=== PATIENT | female | born 1955 | race Caucasian/White ===

== ENCOUNTER 2022-09-21 01:12 | Day surgery (SDC) | payer MEDICARE, BC, SELFPAY ==
[2022-09-05 14:11] VITALS: BMI 35.5
--- NOTE | 2022-09-20 13:24 | PM.HPGS ---
History of Present Illness History of Present Illness Consent: Risks, benefits, and alternatives have been discussed and questions answered. Patient agrees to proceed with procedure. Chief complaint: neoplasm screening Narrative: Anat Rai is a 67 year old female Referred for colon cancer screening. she has a history of having had polyps removed in the past. Review of Systems Review of Systems: All systems reviewed & are unremarkable except as noted in HPI and below [facility] Social History Social History Smoking status: Never smoker Alcohol intake: current Alcohol use details: socially Substance use: never Substance use type: does not use Living arrangements: with family Spiritual care concerns: No Meds Home Medications and Allergies Home Medications Medication Instructions Recorded Confirmed Type aspirin 81 mg capsule 81 mg PO DAILY 09/15/21 09/05/22 History calcium carbonate 600 mg calcium 600 mg PO DAILY 09/15/21 09/05/22 History (1,500 mg) tablet (Calcium) empagliflozin 25 mg tablet 25 mg PO QAM 09/15/21 09/05/22 History (Jardiance) felodipine 5 mg tablet,extended 5 mg PO DAILY 09/15/21 09/05/22 History release 24 hr lisinopril 20 mg tablet 20 mg PO DAILY 09/15/21 09/05/22 History metformin 500 mg tablet,extended 500 mg PO BID 09/15/21 09/05/22 History release 24 hr pantoprazole 20 mg tablet,delayed 20 mg PO QAM 09/15/21 09/05/22 History release semaglutide 1 mg/dose (2 mg/1.5 1 mg subcut WEEKLY 09/15/21 09/05/22 History mL) subcutaneous pen injector (Ozempic) Vascepa 1 mg PO BID 09/05/22 09/05/22 History Allergies Allergy/AdvReac Type Severity Reaction Status Date / Time No Known Allergies Allergy Verified 09/05/22 14:08 Exam Const: General: alert Orientation/consciousness: patient oriented x3 Resp: Auscultation: clear to auscultation bilaterally Cardio: Rhythm: regular rhythm GI: GI Palp: Yes Soft to palpation and No Tenderness to palpation present (GI) Neuro: General: patient oriented x3 Assessment and Plan Assessment and plan (1) Colon cancer screening: Code(s): Z12.11 - Encounter for screening for malignant neoplasm of colon Status: Acute Assessment and Plan: Colonoscopy with possible biopsy or polypectomy or cautery or injection of substances.
[2022-09-21 09:53] VITALS: BP 110/80; PULSE 60; RESP 18; TEMP 36.3; O2SAT 100; BMI 35.6
--- NOTE | 2022-09-21 10:09 | P.PNAN_ITS ---
Anes - Initial Pre Proc Eval Procedure: Operation Date: 09/21/22 11:30 Proposed Procedures p Screening Colonoscopy - Issac Chowdhury MD Date/Time: 09/21/22 10:09 Surgeon: Issac Chowdhury MD Pre Op Diagnosis: neoplasm screening Patient Data Age: 67 Gender: F Height: 1.6 m Weight: 91.4 kg Last Vital Signs Temp 97.3 F L 09/21/22 09:53 Pulse 60 09/21/22 09:53 Resp 18 09/21/22 09:53 BP 110/80 09/21/22 09:53 Pulse Ox 100 09/21/22 09:53 O2 Del Method Room Air 09/21/22 09:53 Allergies Allergy/AdvReac Type Severity Reaction Status Date / Time No Known Allergies Allergy Verified 09/05/22 14:08 Home Medications Medication Instructions Recorded Confirmed Type aspirin 81 mg capsule 81 mg PO DAILY 09/15/21 09/05/22 History calcium carbonate 600 mg calcium 600 mg PO DAILY 09/15/21 09/05/22 History (1,500 mg) tablet (Calcium) empagliflozin 25 mg tablet 25 mg PO QAM 09/15/21 09/05/22 History (Jardiance) felodipine 5 mg tablet,extended 5 mg PO DAILY 09/15/21 09/05/22 History release 24 hr lisinopril 20 mg tablet 20 mg PO DAILY 09/15/21 09/05/22 History metformin 500 mg tablet,extended 500 mg PO BID 09/15/21 09/05/22 History release 24 hr pantoprazole 20 mg tablet,delayed 20 mg PO QAM 09/15/21 09/05/22 History release semaglutide 1 mg/dose (2 mg/1.5 1 mg subcut WEEKLY 09/15/21 09/05/22 History mL) subcutaneous pen injector (Ozempic) Vascepa 1 mg PO BID 09/05/22 09/05/22 History Patient hx anesthesia problems: none Family hx anesthesia problems: none Results Review: All pre-operative results and documents have been reviewed as part of the pre- operative evaluation. [facility] Social History Social History Smoking status: Never smoker Alcohol intake: current Alcohol use details: socially Substance use: never Substance use type: does not use Living arrangements: with family Spiritual care concerns: No Anes - Eval Final PreProcedure Day of Procedure 09/21/22 10:09 Patient weight: obese Heart: regular rate and rhythm Lungs: clear to auscultation Airway: Mallampati scale class III Neurological: alert and oriented Last oral intake: >/= 8 hours ASA classification: III Emergent: no Anesthetic plan: proceed Anesthesia type and monitoring: general GIVS and standard monitoring Results Review: All pre-operative results and documents have been reviewed as part of the pre- operative evaluation. Informed Consent: The patient's anesthetic plan and its attendant risks and benefits were discussed with the patient/family/POA. Questions were solicited and answers provided to the satisfaction of the patient/family/POA.
[2022-09-21 10:12] LABS: Glucose Point of Care 99 mg/dl (65-105)
[2022-09-21] MEDS: LACTATED RINGERS 1,000 ML 150 ML IV CONT (10:23)
[2022-09-21 11:41] VITALS: BP 102/62; PULSE 91; RESP 21; O2SAT 99
[2022-09-21 11:51] VITALS: BP 110/74; PULSE 83; RESP 22; O2SAT 98
[2022-09-21 12:01] VITALS: BP 113/75; PULSE 79; RESP 26; O2SAT 97
== END 2022-09-21 12:04 | disposition home or self-care (01) ==
PROVIDERS: PCP Internal Medicine; Visit Provider Internal Medicine Gastroenterology
PROC: 0DJD8ZZ Inspection of Lower Intestinal Tract, Via Natural or Artificial Opening Endoscopic (ICD-10-PCS; CPT 45378; principal; 2022-09-21 11:30)
DX: Z12.11 Encounter for screening for malignant neoplasm of colon (principal); D12.8 Benign neoplasm of rectum; K57.30 Diverticulosis of large intestine without perforation or abscess without bleeding; Z79.84 Long term (current) use of oral hypoglycemic drugs; Z79.899 Other long term (current) drug therapy; E66.9 Obesity, unspecified; Z68.35 Body mass index [BMI] 35.0-35.9, adult
CPT/HCPCS: 45385; 45380; 82948; 88305; J2704; J7120

== ENCOUNTER 2023-10-23 13:41 | Outpatient (CLI) | payer MEDICARE, BC, SELFPAY ==
[2023-10-23 13:55] LABS: Basophils Absolute Auto 0.1 K/mm3 (0.0-0.1); Basophils Percent Auto 0.7 % (0.2-1.2); Eosinophils Absolute Auto 0.2 K/mm3 (0-0.3); Eosinophils Percent Auto 1.9 % (0-4.4); Hematocrit 45.3 % (37.0-47.0); Immature Granulocyte Absolute 0.04 K/mm3 (0.00-0.031); Immature Granulocyte Percent A 0.4 % (0-0.5); Lymphocytes Absolute Auto 2.34 K/mm3 (0.9-3.2); Lymphocytes Percent Auto 25.7 % (18.3-44.2); Mean Corpuscular HGB Conc 33.1 g/dl (32-36); Mean Corpuscular Hemoglobin 30.5 pg (26-34); Mean Corpuscular Volume 92.1 fl (80-100); Mean Platelet Volume 10.6 fl (7.4-10.4); Monocytes Absolute Auto 0.5 K/mm3 (0.1-0.6); Monocytes Percent Auto 5.6 % (2.6-8.5); Neutrophils Percent Auto 65.7 % (45.5-73.1); Platelet Count Result 255 k/mm3 (150-375); Red Blood Count 4.92 M/mm3 (4.2-5.4); Red Cell Distribution Width 13.1 % (11.5-14.5); White Blood Count 9.1 K/mm3 (4.5-10.0)
== END 2023-10-23 13:42 | disposition home or self-care (01) ==
LOC: ANHLAB 13:44
PROVIDERS: PCP Internal Medicine; Visit Provider Internal Medicine Hematology & Oncology
DX: D75.1 Secondary polycythemia (principal)
CPT/HCPCS: 36415; 85025

== ENCOUNTER 2024-10-07 13:16 | Outpatient (CLI) | payer MEDICARE, BC, SELFPAY ==
[2024-10-07 13:27] LABS: Basophils Absolute Auto 0.1 K/mm3 (0.0-0.1); Basophils Percent Auto 0.9 % (0.2-1.2); Eosinophils Absolute Auto 0.3 K/mm3 (0-0.3); Eosinophils Percent Auto 3.8 % (0-4.4); Immature Granulocyte Absolute 0.03 K/mm3 (0.00-0.031); Immature Granulocyte Percent A 0.4 % (0-0.5); Lymphocytes Absolute Auto 2.39 K/mm3 (0.9-3.2); Lymphocytes Percent Auto 30.5 % (18.3-44.2); Mean Corpuscular HGB Conc 32.6 g/dl (32-36); Mean Corpuscular Hemoglobin 30.5 pg (26-34); Mean Corpuscular Volume 93.5 fl (80-100); Mean Platelet Volume 10.1 fl (7.4-10.4); Monocytes Absolute Auto 0.6 K/mm3 (0.1-0.6); Neutrophils Absolute Auto 4.4 K/mm3 (1.3-6.7); Neutrophils Percent Auto 56.4 % (45.5-73.1); Platelet Count Result 261 k/mm3 (150-375); Red Blood Count 4.92 M/mm3 (4.2-5.4); White Blood Count 7.8 K/mm3 (4.5-10.0)
== END 2024-10-07 13:17 | disposition home or self-care (01) ==
LOC: ANHLAB 13:17
PROVIDERS: PCP Internal Medicine; Visit Provider Internal Medicine Hematology & Oncology
DX: D75.1 Secondary polycythemia (principal)
CPT/HCPCS: 36415; 85025

== ENCOUNTER 2025-07-09 11:55 | Outpatient (CLI) | payer MEDICARE, BC, SELFPAY ==
[2025-07-09 13:13] LABS: Hematocrit 47.4 % (37.0-47.0); Hemoglobin 15.5 g/dL (12.0-15.0); Immature Granulocyte Percent A 0.4 % (0-0.5); Lymphocytes Absolute Auto 2.26 K/mm3 (0.9-3.2); Mean Corpuscular HGB Conc 32.7 g/dl (32-36); Mean Corpuscular Hemoglobin 30.0 pg (26-34); Mean Corpuscular Volume 91.7 fl (80-100); Nucleated Red Blood Cells Absolute Auto 0.000 K/mm3 (0.0-0.012); Nucleated Red Blood Cells Perc 0.0 % (0.0-0.2); Platelet Count Result 254 k/mm3 (150-375); Red Blood Count 5.17 M/mm3 (4.2-5.4); White Blood Count 8.1 K/mm3 (4.5-10.0)
[2025-07-09 13:25] LABS: INR 0.9; Prothrombin Time 12.2 Seconds (11.1-14.7)
[2025-07-09 13:26] LABS: Partial Thromboplastin Time 25.4 Seconds (22.3-36.8)
[2025-07-09 13:34] LABS: Albumin Level 4.4 g/dL (3.5-5.1); Anion Gap 9 mmol/L (4-12); Blood Urea Nitrogen 15 mg/dL (7-17); Calcium 9.4 mg/dL (8.4-10.2); Carbon Dioxide 28 mmol/L (22-30); Chloride 103 mmol/L (98-107); Estimated Glomerular Filt Rate 51; Glucose 106 mg/dL (65-110); Potassium 3.8 mmol/L (3.4-5.0); Sodium 140 mmol/L (137-145)
[2025-07-09 14:01] LABS: Hemoglobin A1C 6.1 % (<5.7)
--- OUTSIDE RECORDS SUMMARY | 2025-07-09 15:12 | XMS_ITS | Clinical Summary ---
Author Organization [facility] Address [address] [place] [address] Care Team Providers Care Pantograph Watcher Name Role Phone Win Garcia MD Primary Care Provider Source Comments [facility],non-owned Affiliates and Associated Physician Practices is amultiple site organization consisting of ambulatory clinics and hospital sitesin [place], [place], [place] and [place]. This disclosure is being madepursuant to the Care Everywhere program and may not contain all information available regarding this patient. Last updated 18.[facility] Allergies No known active allergies Medications * Be aware that medications may not be up to date on this document. Alwaysverify current medications with the patient. felodipine CR 24hr (PLENDIL) 10 MG tablet 5 mg once daily 9 Active atorvastatin (LIPITOR) 20 MG tablet Take 2 (two) tablets by mouth at bedtime 9 Active lisinopril (PRINIVIL; ZESTRIL) 10 MG tablet 2 (two) tablets at bedtime 9 Active pantoprazole EC (PROTONIX) 40 MG tablet Take 20 mg by mouth as needed Active Semaglutide (OZEMPIC, 0.25 OR 0.5 MG/DOSE, SC) Inject 2 mg subcutaneously every 7 days Take 0.25 mg for 4 weeks then 0.50 mg Active empagliflozin (Jardiance) 25 MG tablet Take 1 (one) tablet by mouth once daily Active Calcium Carb-Cholecalc iferol (CALCIUM/VITAM IN D PO) Take 600 mg by mouth once daily Active metFORMIN (GLUCOPHAGE) 500 MG tablet Take 1 (one) tablet by mouth 2 times daily with morning and evening meal Active aspirin EC (Ecotrin) 81 MG tablet Take 1 (one) tablet by mouth once daily Active icosapent ethyl (Vascepa) 1 g capsule Take 2 (two) capsules by mouth 2 times daily with morning and evening meal Active Active Problems Problem Noted Date Diagnosed Date Bone spur of left foot 04/09/2024 Bone spur of right foot 04/09/2024 Skin eruption 01/12/2024 Dystrophia unguium 03/23/2023 06/16/2023 Diabetic peripheral neuropathy 03/23/2023 Erythrocytosis 12/08/2022 Chronic kidney disease, stage 1 07/20/2022 06/16/2023 Dyslipidemia 07/20/2022 06/16/2023 Encounter for screening for cardiovascular disor ders 07/20/2022 Obesity 07/20/2022 Motion sickness 10/28/2021 Nonalcoholic fatty liver disease 04/11/2020 Sleep apnea 10/22/2019 Osteoporosis 10/22/2019 Calcaneal spur of both feet 10/22/2019 Arthritis 10/22/2019 Knee pain 09/30/2019 Gastroesophageal reflux disease 07/18/2019 Hypercholesterolemia 07/18/2019 Osteoarthritis of knee 07/18/2019 Type 2 diabetes mellitus 07/18/2019 Essential hypertension 07/18/2019 Elevated liver enzymes 07/18/2019 Overview (06/14/2024): fibroscan Date of Exam: 09/30/2019 Liver Stiffness: kPa) 4.6 CAP 368 06/17/22 Fibroscan CAP 250, LSM 4.1 kPa 06/14/24 Fibroscan LSM 3.7 CAP 213 Enthesopathy of foot 04/04/2018 Resolved Problems Problem Noted Date Diagnosed Date Resolved Date Upper respiratory infection 01/11/2024 06/28/2024 Family History Medical History Relation Name Comments Other Brother fatty liver COPD - Chronic Obstructive Pulmonary Disease Father Other Father lung cancer Dementia Mother Diabetes - Type 2 Mother Hypertension Mother Relation Name Status Comments Brother Alive Father Alive Mother Alive Social History Tobacco Use Types Packs/Day Years Used Date Smoking Tobacco: Never Smokeless Tobacco: Never Tobacco Cessation:Counseling Given: Not Answered Alcohol Use Standard Drinks/Week Comments Yes 0 (1 standard drink = 0.6 oz pur e alcohol) rarely- special occasions Comments Unknown Sex and Gender Information Value Date Recorded Sex Assigned at Not on file Legal Sex Female 10:14 AM CDT Gender Identity Not on file Sexual Orientation Not on file Last Filed Vital Signs Vital Sign Reading Time Taken Comments Blood Pressure 105/76 06/14/2024 10:42 AM CDT Pulse 80 06/14/2024 10:42 AM CDT Temperature 36.8 C (98.2 F) 06/14/2024 10:42 AM CDT Respiratory Rate 18 09/30/2019 1:14 PM WAITRESS Oxygen Saturation 97% 06/14/2024 10:42 AM CDT Inhaled Oxygen Concentration - - Weight 86.2 kg (190 lb) 06/14/2024 10:42 AM CDT Height 160 cm (5' 3) 06/14/2024 10:42 AM CDT Body Mass Index 33.66 06/14/2024 10:42 AM CDT Plan of Treatment Health Maintenance Due Date Last Done Comments BONE DENSITY TESTING 1955 COLOGUARD (AGES 45-75) - COLON CA SCREENING 1956 COLON MONITORING 1956 COLONOSCOPY - COLON CA SCREENING 1956 CT COLONOGRAPHY - COLON CA SCREENING 1956 Colorectal Cancer Screening 1956 FIT - COLON CA SCREENING 1956 FLEX SIG - COLON CA SCREENING 1956 MAMMOGRAM 1955 MEDICARE AWV 12 MONTHS 1956 HEPATITIS C SCREENING 06/26/1974 DTAP/TDAP/TD VACCINES (1 - Tdap) 1975 PNEUMOCOCCAL VACCINE 50+ (1 of 2 - PCV) 1975 ZOSTER VACCINE (1 of 2) 2006 Respiratory Syncytial Virus (RSV) Vaccine Pt: or over 60 yrs (1 - Risk 60-74 years 1-dose series) 2016 DIABETES RETINOPATHY SCREENING 07/18/2019 DIABETES-FOOT EXAM WITH MONOFILAMENT 07/18/2019 DIABETES-HGB A1C 06/02/2023 11/30/2022, , 07/18/2019, Additional history exists DEPRESSION SCREENING 09/18/2024 DIABETES - URINE PROTEIN SCREENING 09/18/2024 05/30/2023, 03/14/2023, 11/30/2022 DIABETES-SERUM CREATININE 12/18/2024 04/02/ 2024, 05/30/2023, 03/14/2023, Additional history exists COVID-19 VACCINE ( season) 2025 06/20/2022, 06/21/2021 INFLUENZA VACCINE (#1) 2025 , 06/15/2020, 05/26/2020, Additional history exists HEPATITIS B VACCINE Aged Out No longe r eligible based on patient's age to complete this topic HIB VACCINE Aged Out No longer eligi ble based on patient's age to complete this topic HPV VACCINE Aged Out No longer eligi ble based on patient's age to complete this topic MENINGOCOCCAL (Group B) VACCINE SHARED DECISION-MAKING Aged Out No longer eligible based on patient's age to complete this topic MENINGOCOCCAL GROUPS A/C/Y/W VACCINE Aged Out No longer eligible based on patient's age to complete this topic Goals Goal Patient Goal Type Associated Problems Recent Progress Patient-Stated? Author Medication Management General On track( 024 10:49 AM CDT) Anat Ariza, RN Note: Expected end date: ongoing Interventions: Take all medications as prescribed Procedures Procedure Name Priority Date/Time Associated Diagnosis Comments COMP MET PANEL (EXTERNAL RESULT ENTRY) Routine 12/19/2023 10:07 AM CDT MICROALB/CREAT RATIO URINE (EXTERNAL RESULT ENTRY) Routine 05/30/2023 10:40 AM CDT HEMOGLOBIN A1C (EXTERNAL RESULT ENTRY) Routine 11/30/2022 9:23 AM CDT from Last 3 Months or Most Recently Relevant to Health Maintenance Results * (ABNORMAL) COMP MET PANEL (EXTERNAL RESULT ENTRY) (12/19/2023 10:07 AM CDT) Glucose (EXTERNAL) 110(A) mg/dL OTHER LAB Sodium (EXTERNAL RESULT) 140 mmol/L OTHER LAB Potassium (EXTERNAL RESULT) 4.7 mmol/L OTHER LAB Chloride (EXTERNAL RESULT) 106 mmol/L OTHER LAB CO2 (EXTERNAL) 27 mmol/L OTHER LAB Calcium (EXTERNAL RESULT) 9.9 mg/dL OTHER LAB Anion Gap (EXTERNAL RESULT) 11.7(A) mmol/L OTHER LAB BUN (EXTERNAL RESULT) 15 mg/dL OTHER LAB Creatinine (EXTERNAL RESULT) 1.12 mg/dl OTHER LAB Alkaline Phosphatase (EXTERNAL RESULT) 75 U/L OTHER LAB ALT (EXTERNAL RESULT) 27 U/L OTHER LAB AST (EXTERNAL RESULT) 27 U/L OTHER LAB Protein Total (EXTERNAL RESULT) 7.1 gm/dL OTHER LAB Albumin (EXTERNAL RESULT) 4.5(A) gm/dL OTHER LAB Bilirubin Total (EXTERNAL RESULT) 0.80 mg/dL OTHER LAB eGFR MDRD (EXTERNAL RESULT) 49 mL/min/1.7 3m2 OTHER LAB eGFR (EXTERNAL) OTHER LAB Blood BLOOD SPECIMEN / Unknown 12/19/2023 10:07 AM CDT Historical Provider LAB - CHEMISTRY ORDERABLE S Final Result Performing Organization Address [facility] Co de Phone Number OTHER LAB * (ABNORMAL) MICROALB/CREAT RATIO URINE (EXTERNAL RESULT ENTRY) (05/30/2023 10:40 AM CDT) Microalb/Creat Ratio (EXTERNAL RESULT) 52.7(A) mg/g OTHER LAB Urine URINE / Unknown 05/30/2023 1 0:40 AM CDT Historical Provider LAB - URINE CHEMISTRY ORD ERABLES Final Result Performing Organization Address City/[facility] Co de Phone Number OTHER LAB * HEMOGLOBIN A1C (EXTERNAL RESULT ENTRY) (11/30/2022 9:23 AM CDT) Hemoglobin A1c (EXTERNAL RESULT) Pending % OTHER LAB Blood BLOOD SPECIMEN / Unknown 11/30/2022 9:23 AM CDT Historical Provider LAB - CHEMISTRY ORDERABLE S Final Result Performing Organization Address City/[facility]/ZIP Co de Phone Number OTHER LAB from Last 3 Months or Most Recently Relevant to Health Maintenance Insurance ANTHEM MEDICARE ANTHEM MEDICARE ANTHEM Care Teams Pantograph Watcher Relationship Specialty [place] [address] [place] [address] [phone] PCP - General Internal Medicine 05/16/19
--- OUTSIDE RECORDS SUMMARY | 2025-07-09 15:12 | XMS_ITS | Clinical Summary ---
Author Organization [facility] Miguelito Maradiaga Address [address] [place] [address] Care Team Providers Care Ammonia Box Tender Name Role Phone Win Garcia MD Primary Care Provider Allergies No known active allergies Medications felodipine (PLENDIL) 5 mg Extended Release 24 hour tablet Take 5 mg by mouth daily. Active lisinopriL (PRINIVIL) 20 mg tablet Take 20 mg by mouth daily. Active empagliflozin (Jardiance) 25 mg tablet Take by mouth daily in the morning. Active semaglutide (OZEMPIC SUBCUT) Inject 2 mg by subcutaneous injection every 7 days. Active pantoprazole (PROTONIX) 20 mg Tablet, Delayed Release (E.C.) Take 20 mg by mouth daily. Active calcium as carbonate (TUMS) 500 mg (200 mg elemental) Tablet, Chewable Take by mouth. Activ e atorvastatin (LIPITOR) 40 mg tablet atorvastatin 40 mg tablet Active aspirin (ECOTRIN EC) 81 mg Tablet, Delayed Release (E.C.) Take 81 mg by mouth daily. Active icosapent ethyL (Vascepa) 1 gram Capsule Take 2 Grams by mouth 2 times daily with meals. Active Active Problems Problem Noted Date Diagnosed Date Erythrocytosis 07/30/2021 Encounters Date Type Department Care Team Description 06/03/2025 External Device Data [facility] ABSTRACTION Provider, Abstract 05/27/2025 External Device Data [facility] ABSTRACTION Provider, Abstract 04/23/2025 External Device Data [facility] ABSTRACTION Provider, Abstract 04/22/2025 External Device Data [facility] ABSTRACTION Provider, Abstract from Last 3 Months Family History Medical History Relation Name Comments Cancer Brother 1 Cancer Father Relation Name Status Comments Brother 1 Alive Brother 2 Alive Father Mother Social History Tobacco Use Types Packs/Day Years Used Date Smoking Tobacco: Never Smokeless Tobacco: Never Alcohol Use Standard Drinks/Week Comments Not Currently 0 (1 standard drink = 0.6 oz pur e alcohol) Comments Unknown Sex and Gender Information Value Date Recorded Sex Assigned at Not on file Legal Sex Female 11:31 AM CDT Gender Identity Not on file Sexual Orientation Not on file Last Filed Vital Signs Vital Sign Reading Time Taken Comments Blood Pressure 119/79 10/07/2024 2:03 PM YARD PILOT Pulse 83 10/07/2024 2:03 PM YARD PILOT Temperature 36.4 C (97.6 F) 10/07/2024 2:03 PM YARD PILOT Respiratory Rate 16 10/07/2024 2:03 PM YARD PILOT Oxygen Saturation 96% 10/07/2024 2:03 PM YARD PILOT Inhaled Oxygen Concentration - - Weight 88.5 kg (195 lb) 10/07/2024 2:03 PM YARD PILOT Height 160 cm (5' 3) 06/15/2022 1:55 PM CDT Body Mass Index 34.54 06/15/2022 1:55 PM CDT Plan of Treatment Upcoming Encounters Date Type Department Care Team (Late st Contact Info) Description 10/08/2025 1:00 PM YARD PILOT Office Visit [facility] Oncology and Hematology - [place] [address] [place] [address] [facility] [address] [place] [address] Forest Carrion MD [address] [place] [address] Health Maintenance Due Date Last Done Comments DIABETES ANNUAL FOOT EXAM 1974 DIABETES ANNUAL RETINAL EXAM 1974 DIABETES MICROALBUMIN ANNUAL SCREEN 1974 LDL CHOLESTEROL ANNUAL 1974 FIT-DNA Q 3 years 2001 FIT/FOBT Q 1 year 2001 Flex Sig/CT Colonography Q 5 years 2001 RSV VACCINE (60+ or ) (1 - Risk 50-74 years 1-dose series) 2006 ZOSTER VACCINE (1 of 2) 2006 INFLUENZA VACCINE (#1) 2025 2, 06/21/2021, 06/15/2020, Additional history exists DIABETES HBA1C Q 6 MONTHS 06/25/20252024, 06/27/2024, 12/19/2023, Additional history exists BREAST CANCER SCREENING 07/31/2025 07/31/20 24, 07/31/2024, 06/27/2023, Additional history exists PNEUMOCOCCAL VACCINE 50+ YEA RS (3 of 3 - PCV20 or PCV21) 07/08/2026 07/08/2021, 05/26/2020 DTAP/TDAP/TD VACCINES (2 - T d or Tdap) 09/19/2027 09/19/2017 OSTEOPOROSIS SCREENING 07/31/2029 07/31/2024, 2021 COLORECTAL SCREENING 09/21/2032 09/21/2022, 09/21/2022, 11/14/2012 Colorectal Cancer Screening 09/21/2032 Insurance MEDICARE PART A AND B [facility] Care Teams Ammonia Box Tender Relationship Specialty Start Date End Date Win Garcia MD PCP - General Internal Medicine 07/30/21
--- OUTSIDE RECORDS SUMMARY | 2025-07-09 15:12 | XMS_ITS | Data Portability ---
Author Organization [place] - [facility] [employer], Main Office Address [address] [place] [address] Care Team Providers Care Oncologist Name Role Phone WIN GARCIA Primary Care Provider WIN GARCIA Referring Provider JANNA RIVERA Organic Chemistry Professor ALEXANDER BANG Corporate Auditor NEHA LAZAR Sr. Director IMELDA SANTOYO Precision [employer]ing Worker [employer] Train Control Technician Assessment Encounter Date Assessment Date Assessment LastModified by Organization Details LastModified Time 01/14/2025 01/14/2025 11/30/2022: A1C 6.5 TSH: WNL VIT D WNL CMP: WNL Lipids: WNL HCT 46.4 05/30/2023: A1C 5.9 H/H 16.4/50.8 Urine micro alb 52.7 Gluc 105, alb 4.5H, TP WNL TG 188 12/19/2023: A1C 5.8 TG 174 Rima Judd H/H 16.0/48.9 Gluc 110 06/27/2024: A1C 5.7 BUN 20, GFR 50 TG 179 HCT 46.1 12/24/2024: A1C 6.3 Gluc 125, GFR 45, ALT 50H TG 162 H/H 16.6/50.2 [email or web address] Not available 01/14/2025 14:23:34 04/08/2025 04/08/2025 The patient has severe primary osteoarthritis of both knee joints as described. At her request under sterile conditions I injected the patient's bilateral knee joints in the office today with Orthovisc injection number 1. She tolerated both injections well. I will see her back next week for the 2nd injection both knees. We talked about total knee arthroplasty in detail today including risks benefits limitations and alternatives the recovery process in the procedure itself. She was given a brochure on total knee arthroplasty also. She is going to think about it consider this later this year. She will call for any further problems difficulties or questions. Not available 04/08/2025 15:06:57 04/15/2025 04/15/2025 This note is dictated and transcribed by [employer]. Coagulating Bath Operator variances may occur. Despite proofreading, typographical errors may occur. Occasional wrong-word or '[id number]' substitutions may have occurred due to the inherent limitations of voice recording. Read the chart carefully and recognize, using context, where substitutions have occurred. [email or web address] Not available 04/18/2025 10:23:33 04/15/2025 04/15/2025 The patient has severe primary osteoarthritis both knees as described. At her request under sterile conditions I injected both knee joints in the office today with Orthovisc injection number 2. I will see her back next week for the 3rd injections both knees. She voiced understanding agrees above plan she will call for any further problems difficulties or questions. She is already getting good relief from the 1st round of injections last week. Not available 04/15/2025 15:15:35 04/29/2025 04/29/2025 The patient has severe primary osteoarthritis both knees as described. Under sterile conditions I injected both knee joints in the office today with Orthovisc injection number 3. The patient tolerated both injections well. I will see her back as needed we can do this again in 6 months if she would like we could do cortisone in between that six-month janel as well. She is considering total knee arthroplasty she will let us know when she decides what else she is going to do. She voiced understanding and agreed with the above plan she will call for any further problems difficulties or questions. Not available 04/29/2025 15:03:00 Plan of Treatment Reminders Order Date Submit Date Provider Last Modified By Organization Details Last Modified Time Details Appointments Medicare Wellness 15 2024 01:15P M Win rodriguez MD Not available Not available Not available Follow Up 2025 01:00P M Neha Lazar MD Not available Not available Not available Establish ed Patient 10 2025 03:30P M CARRIE BrunoM Not available Not available Not available Lab vitamin D, 25-hydrox y, total, serum [address] (Lab), [address] [place], [address], 01/14/2025 14:34:07 glycohemo globin, total, blood 2024 025 [facility] (Lab), [address] [place], [address], 07/03/2025 20:03:46 microalbu min, urine 2024 025 [facility] (Lab), [address] [place], [address], 07/03/2025 13:39:01 lipid panel, serum 2024 025 [facility] (Lab), [address] [place], [address], 07/03/2025 14:12:28 CBC w/ auto diff 2024 025 [facility] (Lab), [address] [place], [address], 07/03/2025 13:58:02 CMP, serum or plasma 2024 025 [facility] (Lab), [address] [place], [address], 07/03/2025 14:12:38 TSH, serum or plasma 2024 025 [facility] (Lab), [address] [place], [address], 07/03/2025 14:08:58 Referral nephrolog ist referral - Please call patient to schedule an appointme nt. Thank you. 2024 025 [email or web address] [place], [address] [address] , [facility] [address], [place], [address], 04/15/2025 12:04:34 hematolog ist referral - Please call patient to schedule an appointme nt. Thank you. 2024 025 [email or web address] Forest Carrion MD, [address] [place], [place], [address], 04/15/2025 12:04:37 cardiolog ist referral - Please call patient to schedule an appointme nt. Thank you. 2024 025 [email or web address] Janna Rivera, [address], [place], [address], 04/15/2025 12:04:35 podiatris t referral - Please call patient to schedule an appointme nt. Thank you. 2024 025 [email or web address] Alexander Bang DPM, [address] [facility], [facility] [address], [place], [address], 04/15/2025 12:04:33 Procedures knee aspiratio n/injecti on (PROC) 2024 025 [email or web address] In-Office Order, Internal Use Only DO Not Attach Compendium DO Not Attach Compendium, Do Not Delete/merge, 04/29/2025 14:50:28 knee aspiratio n/injecti on (PROC) 2024 025 [email or web address] In-Office Order, Internal Use Only DO Not Attach Compendium DO Not Attach Compendium, Do Not Delete/merge, 04/15/2025 14:58:59 knee aspiratio n/injecti on (PROC) 2024 025 In-Office Order, Internal Use Only DO Not Attach Compendium DO Not Attach Compendium, Do Not Delete/merge, [id number] 04/08/2025 14:51:54 knee aspiratio n/injecti on (PROC) 2024 025 [email or web address] In-Office Order, Internal Use Only DO Not Attach Compendium DO Not Attach Compendium, Do Not Delete/merge, [id number] 04/08/2025 15:54:15 Surgeries None recorded. Imaging None recorded. Medication Orders ORTHOVISC 30 mg/2 mL intra-art icular syringe 2024 025 [email or web address] [id number], [address], [place], [place], [id number], 04/29/2025 15:25:38 ORTHOVISC 30 mg/2 mL intra-art icular syringe 2024 025 [email or web address] [id number], [address], [place], [place], [id number], 04/15/2025 16:20:40 ORTHOVISC 30 mg/2 mL intra-art icular syringe 2024 025 [email or web address] [id number], [address], [place], [place], [id number], 04/08/2025 15:54:15 Jardiance 25 mg tablet 2024 025 [facility], [facility], [place], [address], 01/14/2025 14:33:43 Patient TargetsNo targets recorded. Patient InstructionsNo instructions recorded. Reason for Referral Corporate Auditor Referral for Type 2 diabetes mellitus without complication Please call patient to schedule an appointment. Thank you. Referring Physician: Win Garcia, Internal Medicine, Encounter Date: 01/14/2025 Precision Printing Worker Referral for Ch ronic kidney disease Please call patient to schedule an appointment. Thank you. Referring Physician: Win Garcia Internal Medicine, Encounter Date: 01/14/2025 Organic Chemistry Professor Referral for Es sential hypertension Please call patient to schedule an appointment. Thank you. Referring Physician: Win Garcia Internal Medicine, Encounter Date: 01/14/2025 Please call patient to sched ule an appointment. Thank you. Referring Physician: Win Garcia Internal Medicine, Encounter Date: 01/14/2025 Results Created Date Observation Date Name Description Value Unit Range Abnormal Flag Note LastModifiedBy Organization Detail LastModifiedTime 12/20/19 25 XR, knee, 3 view No observ ation record ed. [email or web address] [facility] [address], [place], [address], 12/19/2024 14:02:21 Result Notes None recorded. Problems Name Problem SNOMED Code Status Onset Date Resolution Date Notes Provider Name and Address Organization Details Recorded Time Gastroesop hageal reflux disease 474506654 Active Not Available [facility] 3 04:52:44 Hyperlipid emia 12122358 Active Not Available [facility] 3 04:52:45 Essential hypertensi on 06971455 Active Not Available [facility] 3 04:52:46 Bilateral bone spur of calcaneum 4091768804483 9104 Active 2019 Not Available [facility] 3 04:52:44 Osteoporos is 35992932 Active 2019 Not Available [facility] 3 04:52:46 Obstructiv e sleep apnea syndrome 11626605 Active 2020 Neha Lazar MD [address] [facility], [facility] [address], [place], [address] , [facility] [employer] [facility] 4 10:44:58 Motion sickness 03313115 Active 2021 Not Available [facility] 3 04:52:45 Bilateral osteoarthr itis of knees 4128681831150 07 Active 2021 Not Available [employer] 3 04:52:44 COVID-19 637233168 Active 2021 Not Available [facility] 3 04:52:46 Chronic kidney disease 411288037 Active 2022 Win dee MD [address], [address], [place], [address] , [facility] 3 14:33:41 Erythrocyt osis 829909925 Active 2022 Win dee MD [address], [address], [place], [address] , [facility] - [facility] 3 14:34:20 Obesity 737473258 Active 2022 Irena lind, [place] [facility] 3 15:38:44 Diabetic peripheral neuropathy 502024375 Active 2022 Neha Lazar MD [address], [address], [place], [address] , [facility] - [facility] 4 10:45:18 Pain of bilateral knee joints 2675970999638 04 Active 2024 Viviana Cortez CNA null, [place] [facility] 5 10:36:03 Sea sickness 28235466 Active 2024 TINA Biggs null, [place] [facility] 5 12:53:14 Increased liver function 83792011 Active 2024 Win dee MD [address], [address], [place], [address] , [facility] 5 14:22:13 Gastroesop hageal reflux disease without esophagiti s 590426834 Active 2024 Win dee MD [address], [address], [place], [address] , [employer] 14:22:13 Type 2 diabetes mellitus without complicati on 515209288 Active 2024 Win dee MD [address], [address], [place], [address] , [employer] 5 14:22:13 Vitamin D deficiency 53239138 Active 2024 Win dee MD [address], [address], [place], [address] , [employer] 14:25:50 Type 2 diabetes mellitus 52941730 Active 2024 Alexander Bang DPM [address], [address], [place], [address] , [employer] 10:23:46 Dystrophia unguium 80008795 Active 2024 Alexander Bang DPM [address], [address], [place], [address] , [employer] 10:23:52 Notes:Medical History: Kinet osis Left tinnitus COVID infection 05/2021 Postnasal drip Erythrocytosis c/o Dr. 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 Procedures Surgical History Date Name Laterality Status Provider Name and Address Organization Details Recorded Time 04/15/20 25 Nail Debridement completed Alexander Bang DPM [address], [address], [place], [address], [employer] 04/18/2025 10:23:16 04/09/20 24 Nail Debridement completed Alexander Bang DPM [address], [address], [place], [address], [facility] [employer] [facility] [employer] [place] 04/11/2024 09:07:03 01/11/20 24 Medicare Wellness CPT Code, subsequent completed Sekouleila Boles LPN [employer] [facility] [employer] [place] [facility] 01/11/2024 14:42:40 03/23/20 23 Nail Debridement completed Alexander Bang DPM [address], [address], [place], [address], [facility] [employer] [facility] [employer] [place] [facility] 03/23/2023 16:50:56 09/21/19 23 Colonoscopy completed Not Available [facility] 11/16/2022 04:42:10 06/24/20 22 Most Recent Bone Density completed Not Available [facility] 11/16/2022 04:42:07 11/14/19 17 Cholecystectomy completed Not Available [facility] 11/16/2022 04:42:10 Knee Surgery completed Not Available [facility] 11/16/2022 04:42:10 Imaging Results None recorded. Procedure Notes None recorded. Medical Equipment None Reported. Allergies No known drug allergies Medications Name Sig Start Date Stop Date Status Note LastModified by Organization Details LastModified Time atorvasta tin 40 mg tablet TAKE 1 TABLET DAILY active Not Available Not Available No t Available metformin 500 mg tablet TAKE 1 TABLET TWICE A DAY active Not Available Not Available No t Available prednison e 10 mg tablet Take by oral route. 03/22 completed Not Available Not Available Not Available atorvasta tin 20 mg tablet 1 Tablet daily 11/09 completed Not Available Not Available Not Available hydrocort isone-pra moxine 2.5 %-1 % rectal cream active Not Available Not Available Not Available Pneumovax -23 25 mcg/0.5 mL injection solution active Not Available Not Available Not Available azithromy yuan 250 mg tablet TAKE 2 TABLETS (500 MG) BY ORAL ROUTE ONCE DAILY FOR 1 DAY THEN 1 TABLET (250 MG) BY ORAL ROUTE ONCE DAILY FOR 4 DAYS 04/09 completed Not Available Not Available Not Available valacyclo vir 1 gram tablet TAKE 1 TABLET BY MOUTH EVERY DAY FOR 5 DAYS 04/09 completed Not Available Not Available Not Available lisinopri l 20 mg tablet TAKE 1 TABLET ONCE DAILY active Not Available Not Available No t Available bupivacai ne HCl 0.5 % (5 mg/mL) injection solution Take 8 mL by injectio n route. 12/30 completed Not Available Not Available Not Available felodipin e ER 5 mg tablet,ex tended release 24 hr TAKE 1 TABLET ONCE DAILY. DO NOT CRUSH, CHEW, OR SPLIT active Not Available Not Available No t Available chlorthal idone 25 mg tablet 1 tablet daily active HOLD WHILE TAKING JARDIANC E Not Available Not Available Not Available valacyclo vir 500 mg tablet 12/16 completed Not Available Not Available Not Available simvastat in 40 mg tablet TAKE 1 TABLET DAILY active Not Available Not Available No t Available pantopraz ole 20 mg tablet,de layed release active Not Available Not Available Not Available prednison e 10 mg tablets in a dose pack Take 1 tab by mouth, 3 times a day for 3 daysTake 1 tab by mouth 2 times a day for 2 daysTake 1 tab by mouth once a day for 1 day 03/22 completed Not Available Not Available Not Available oxycodone -acetamin ophen 5 mg-325 mg tablet 02/24 completed Not Available Not Available Not Available prednisol one acetate 1 % eye drops,em pension PLACE 1 DROP INTO SURGICAL EYE THREE TIMES DAILY FOR 3 WEEKS AFTER SURGERY active Not Available Not Available No t Available Kenalog 10 mg/mL suspensio n for injection Take 4 mL by injectio n route. 12/30 completed [facility]: [phone] 4-20 Not Available Not Available Not Available Proctozon e-HC 2.5 % topical cream perineal applicato r APPLY A THIN LAYER TO THE AFFECTED AREA(S) BY TOPICAL ROUTE 2-4 TIMESDAI LY PRN 04/27 completed Not Available Not Available Not Available pantopraz ole 40 mg tablet,de layed release Take 1 tablet every other day by oral route as needed. 01/01 completed Not Available Not Available Not Available nystatin 100,000 unit/gram topical cream 02/18 completed Not Available Not Available Not Available ranitidin e 150 mg tablet Take 1 tablet as needed by oral route. 04/27 completed Not Available Not Available Not Available lisinopri l 10 mg tablet Take 1 tablet every day by oral route. active Not Available Not Available No t Available nystatin- triamcino lone 100,000 unit/g-0. 1 % topical cream APPLY TO THE AFFECTED AREA(S) BY TOPICAL ROUTE 2 TIMES PER DAY PRN active Not Available Not Available No t Available diclofena c sodium 75 mg tablet,de layed release TAKE 1 TABLET BY MOUTH TWICE DAILY active Not Available Not Available No t Available felodipin e ER 10 mg tablet,ex tended release 24 hr TAKE 1 TABLET DAILY active Not Available Not Available No t Available lisinopri l 5 mg tablet Take 1 tablet every day by oral route for 90 days. 10/[address] Dennis, now on 10mg daily Not Available Not Available Not Available hydrochlo rothiazid e 25 mg tablet TAKE 1 TABLET DAILY 05/14 completed Not Available Not Available Not Available scopolami ne 1 mg over 3 days transderm al patch UNWRAP AND APPLY 1 PATCH EXTERNAL LY EVERY 72 HOURS NEEDED WHILE ON THE CRUISE 12/30 completed Not Available Not Available Not Available Vitamin D2 1,250 mcg (50,000 unit) capsule Take 1 capsule every week by oral route. 12/25 completed Not Available Not Available Not Available metformin ER 500 mg tablet,ex tended release 24 hr TAKE 1 TABLET TWICE A DAY 07/16 completed Not Available Not Available Not Available ezetimibe 10 mg tablet TAKE 1 TABLET DAILY active Not Available Not Available No t Available ORTHOVISC 30 mg/2 mL intra-art icular syringe Inject 2 mL every week by intra-ar ticular route. 2024 active Not Available Not Available Not Avai lable fenofibra te 160 mg tablet Take 1 tablet every day by oral route in the evening. active Not Available Not Available No t Available Euflexxa 10 mg/mL (mw 2.4-3.6 million) intra-art icular syringe Inject 2.5 mL by intra-ar ticular route for 35 days. 12/08 completed Not Available Not Available Not Available aspirin 2021 active Not Available Not Available Not Avai lable felodipin e 5mg dailyDr Dennis reduced 04/28/20 20 05/28 completed Not Available Not Available Not Available Vitamin D3 qd 04/27 completed Not Available Not Available Not Available Calcium 600 with Vitamin D3 one tab daily active Not Available Not Available No t Available metformin ER 500 mg 24 hr tablet,ex tended release (gastric retention ) Take 1 tablet twice a day by oral route. 06/21 completed Not Available Not Available Not Available fenofibra te nanocryst allized 48 mg tablet TAKE 1 TABLET DAILY (IN PLACE OF SIMVASTA TIN) 04/17 completed Not Available Not Available Not Available fenofibra te nanocryst allized 145 mg tablet TAKE 1 TABLET DAILY. (IN PLACE OF 48MG DOSE) active Not Available Not Available No t Available blood pressure kit-extra large cuff active Not Available Not Available Not Available Suprep Bowel Prep Kit 17.5 gram-3.13 gram-1.6 gram oral solution active Not Available Not Available Not Available ropivacai ne (PF) 5 mg/mL (0.5 %) injection solution Take 40 mg by injectio n route. 12/08 completed Not Available Not Available Not Available Accu-Chek FastClix Lancing Device USE DIRECTED 12/16 completed Not Available Not Available Not Available Accu-Chek SmartView Test Strips twice daily active Not Available Not Available No t Available icosapent ethyl 1 gram capsule TAKE 2 CAPSULES TWICE DAILY active Not Available Not Available No t Available Jardiance 10 mg tablet Take 1 tablet every day by oral route. active Not Available Not Available No t Available Jardiance 25 mg tablet TAKE 1 TABLET DAILY active Not Available Not Available No t Available Supartz FX 10 mg/mL intra-art icular syringe Inject 2.5 mL by intra-ar ticular route for 35 days. 07/19 completed Not Available Not Available Not Available Ozempic 1 mg/dose (2 mg/1.5 mL) subcutane ous pen injector Inject 1mL subq every week 12/08 completed duplicat e Not Available Not Available Not Available Ozempic 0.25 mg or 0.5 mg (2 mg/1.5 mL) subcutane ous pen injector Inject 0.5 mg every week by subcutan eous route for 90 days. 02/04 completed Not Available Not Available Not Available Accu-Chek Fastclix Lancet Drum active Not Available Not Available Not Available Flucelvax Quad (PF) 60 mcg (15 mcg x 4)/0.5 mL IM syringe active Not Available Not Available Not Available Flucelvax Quad (PF) 60 mcg (15 mcg x 4)/0.5 mL IM syringe active Not Available Not Available Not Available Ozempic 1 mg/dose (4 mg/3 mL) subcutane ous pen injector Inject 1 mL every week by sub-q route for 84 days. 03/23 completed Not Available Not Available Not Available Ozempic 2 mg/dose (8 mg/3 mL) subcutane ous pen injector active Not Available Not Available Not Available Paxlovid 150 mg-100 mg tablets in a dose pack (Moderate Renal Dose) Take 1 dose pk by oral route as directed . 07/11 completed Not Available Not Available Not Available Vitals Date Recorded Body height Body mass index (BMI) Body weight Body temperature Heart rate Oxygen saturation Oxygen saturation in Arterial blood by Pulse oximetry Systolic And Diastolic Provider Name and Address Organization Details Last Updated DateTime 160.02 cm 35.4 kg/m2 87635.4 7 g 97.7 [degF] 88 /min 98 % 98 % 110/64 mm[Hg] Nikole Corea MA [employer] 14:13:52 Date Recorded Body height Body mass index (BMI) Body weight Pain severity - 0-10 verbal numeric rating [Score] - Reported Provider Name and Address Organization Details Last Updated DateTime 04/08/2025 160.02 cm 35.4 kg/m2 02598.47 g 6 TINA [place] [employer] 04/08/2025 14:40:57 Date Recorded Body height Body mass index (BMI) Body weight Provider Name and Address Organization Details Last Updated DateTime 04/15/2025 160.02 cm 35.4 kg/m2 61949.47 g TRUE Alves [employer] 04/15/2025 14:57:19 Date Recorded Body height Body mass index (BMI) Body weight Heart rate Respiratory rate Oxygen saturation Oxygen saturation in Arterial blood by Pulse oximetry Systolic And Diastolic Provider Name and Address Organization Details Last Updated DateTime 160.02 cm 35.4 kg/m2 52669.4 7 g 97 /min 14 /min 98 % 98 % 126/77 mm[Hg] Vero Izquierdo MS [employer] [facility] [employer] 16:34:30 Date Recorded Body height Body mass index (BMI) Body weight Provider Name and Address Organization Details Last Updated DateTime 04/29/2025 160.02 cm 35.4 kg/m2 84989.47 g Viviana Cortez CNA MS [employer] [facility] [employer] 04/29/2025 14:47:25 Social History Question Answer Notes LastModified by Organization Details LastModified Time Tobacco Smoking Status Never Smoker LEELA Felipe, [place] [employer] [facility] [employer] 06/15/2023 11:53:08 Do You Have An Advance Directive? Yes [id number] Information not available 11/16/2022 Are You Blind Or Do You Have Difficulty Seeing? No [email or web address] Information not available 06/15/2023 What Is Your Level Of Caffeine Consumption? Occasional [id number] Information not available 11/16/2022 In The 14 Days Before Symptom Onset, Have You Had Close Contact With A Laboratory-confi rmed COVID-19 While That Case Was Ill? No [email or web address] Information not available 06/15/2023 In The 14 Days Before Symptom Onset, Have You Had Close Contact With A Person Who Is Under Investigation For COVID-19 While That Person Was Ill? No [email or web address] Information not available 06/15/2023 Are You Deaf Or Do You Have Serious Difficulty Hearing? No [email or web address] Information not available 06/15/2023 What Type Of Diet Are You Following? [email or web address] [id number] Information not available 11/16/2022 What Is The Highest Grade Or Level Of School You Have Completed Or The Highest Degree You Have Received? [id number] [email or web address] Information not available 06/15/2023 Do You Have An Electrostatic Air Filter? No Information not available 09/30/2024 Have There Been Any Changes To Your Family Or Social Situation? No [email or web address] Information not available 06/15/2023 What Is The Fluoride Status Of Your Home? Unknown [email or web address] Information not available 06/15/2023 Are There Any Guns Present In Your Home? No [email or web address] Information not available 06/15/2023 Do You Have A Humidifier? No Information not available 09/30/2024 Do You Use Insect Repellent Routinely? Yes [email or web address] Information not available 06/15/2023 Where Do You Live? SingleLevelHouse With Basement [email or web address] Information not available 06/15/2023 Presence Of Domestic Violence No [email or web address] Information not available 01/11/2024 Guns Present In The Home? No [email or web address] Information not available 01/11/2024 Are You Able To Care For Yourself? Yes Information not available 01/11/2024 Are You Blind Or Do Yo Have Difficulty Seeing? No [email or web address] Information not available 01/11/2024 Are You Deaf Or Do You Have Serious Difficulty Hearing? No [email or web address] Information not available 01/11/2024 General Stress Level? Low [email or web address] Information not available 01/11/2024 Live Alone Of With Others? With Others Information not available 01/11/2024 Do You Have A Medical Power Of Family Service Worker? Yes [email or web address] Information not available 06/15/2023 Do You Have Moisture Problems In Your Home? No Information not available 09/30/2024 What Was The Date Of Your Most Recent Tobacco Screening? 04/29/2025 [email or web address] Information not available 04/29/2025 How Many Children Do You Have? 2 Information not available 01/14/2025 Have You Ever Been Counseled For Unhealthy Alcohol Use? No [email or web address] Information not available 01/11/2024 Do You Have Any Pets? Yes [email or web address] Information not available 06/15/2023 What Is Your Relationship Status? [id number] Information not available 11/16/2022 Do You Use Your Seat Belt Or Car Seat Routinely? Yes [email or web address] Information not available 01/11/2024 Do You Have Smoke And Carbon Monoxide Detectors In Your Home? Yes Information not available 06/15/2023 Are You Passively Exposed To Smoke? No [email or web address] Information not available 06/15/2023 Are There Any Smokers In Your House? No [email or web address] Information not available 06/15/2023 Do You Use Sunscreen Routinely? Yes [email or web address] Information not available 06/15/2023 Has Tobacco Cessation Counseling Been Provided? No N/a [email or web address] Information not available 06/15/2023 Have You Recently Traveled Abroad? No [email or web address] Information not available 06/15/2023 Do You Have Difficulty Walking Or Climbing Stairs? No [email or web address] Information not available 06/15/2023 Do You Have Any Dietary Restrictions? No Information not available 06/15/2023 How Many Days In The Past Year Have You Consumed 4 Or More Drinks? 0 [email or web address] Information not available 01/11/2024 Sex: Female Functional Status Question Answer Note LastModified by [employer] ion Details LastModified Time Do you use any illicit or recreational drugs? No [email or web address] Information not available 06/15/2023 Do you or have you ever used any other forms of tobacco or nicotine? No Information not available 06/15/2023 What is your level of alcohol consumption? Occasional [id number] Information not available 11/16/2022 Are you currently employed? Yes Information not available 01/14/2025 Have you been exposed to chemicals or toxins? not that aware of Information not available 09/30/2024 Do you have transportation difficulties? No [email or web address] Information not available 06/15/2023 Are you able to walk independently without assistance or assistive devices? YESWOREST [email or web address] Information not available 06/15/2023 Do you have difficulty doing errands alone? No [email or web address] Information not available 06/15/2023 Are you able to care for yourself independently? 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 No [email or web address] Information not available 06/15/2023 What is your exercise level? Occasional [id number] Information not available 11/16/2022 Mental Status Question Answer Note LastModified by Organiz[employer] ion Details LastModified Time Do you feel stressed (tense, restless, nervous, or anxious, or unable to sleep at night)? [id number] [email or web address] Information not available 06/15/2023 Do you have difficulty concentrating, remembering or making decisions? No [email or web address] Information no t available 06/15/2023 Family History Relationship Description Onset Age of this Age Resolved Age Notes LastModified by Organization Details LastModified Time Father Chronic obstructive pulmonary disease [email or web address] Not available 2024 14:42:10 Father Malignant neoplasm of lung [email or web address] Not available 2024 14:42:10 Mother Diabetes mellitus [id number] Not available 11/16/2022 04:42:15 Mother Dementia [email or web address] Not availabl e 04/29/2025 14:42:10 Mother Hypertensive disorder [email or web address] Not available 2022 15:39:52 Mother Obstructive sleep apnea syndrome [email or web address] Not available 2024 14:42:10 Maternal Grandmother Diabetes mellitus [email or web address] Not available 2024 11:36:58 Maternal Grandmother Hypertensive disorder [email or web address] Not available 2024 11:37:10 Paternal Grandfather Malignant neoplasm of colon [email or web address] Not available 2024 14:42:10 Paternal Grandmother Asthma [email or web address] Not available 2024 11:37:49 Brother Malignant neoplasm of prostate [email or web address] Not available 2024 14:42:10 Brother Obstructive sleep apnea syndrome [email or web address] Not available 2024 14:42:10 Medical History Condition Response NERVE DISEASE N BLINDNESS N RHEUMATIC FEVER N KIDNEY STONES N BLADDER PROBLEMS N MRSA N OTHER # 1 N POLIO N LUNG DISEASE/DISORDER N HISTORY OF DRUG ABUSE N RADIATION / CHEMOTHERAPY N COPD N Other # 2 N BLOOD DISEASES N EAR OR HEARING PROBLEMS N MUMPS N SHINGLES N DEPRESSION (INCLUDING POST ) N BOWEL PROBLEMS N STROKE/TIA N ULCERS N BENIGN PROSTATIC HYPERPLASIA N MEASLES N HYPOTENSION N MYOCARDIAL INFARCTION N OBESITY Y GERD/NAUSEA Y ANEURYSM N URINARY/BLADDER/KIDNEY PROBLEMS N CORONARY ARTERY DISEASE (CAD) N ADDICTION CONCERNS N Impotence N ENDOMETRIOSIS N USE OF BLOOD THINNERS N SKIN PROBLEMS N GASTROINTESTINAL DISORDER N PERIPHERAL VASCULAR DISEASE N MUSCLE,JOINT OR BONE PROBLEMS N GASTROINTESTINAL BLEEDING N BLOOD CLOTS N ASTHMA N CATARACTS N ERECTILE DYSFUNCTION N VARICOSITIES N GI PROBLEMS N Low Testosterone N INFERTILITY N AIDS/HIV N CHEMOTHERAPY / RADIATION N LIVER DISEASE N MALE HYPOGONADISM N HYPERTENSION Y Deficiency Y TOURETTE'S N ANXIETY DISORDER N BLOOD TRANSFUSION N ANEMIA/BLOOD DISORDER N CHRONIC EAR INFECTIONS N BRONCHITIS N TUBERCULOSIS N GLAUCOMA N FOOT PROBLEM N DIVERTICULITIS N SLEEP APNEA Y CHICKENPOX N INFECTIOUS DISEASE N PROSTATE N HEART ARRHYTHMIA N INSOMNIA N HIGH CHOLESTEROL / HYPERLIPIDEMIA Y EYE PROBLEMS N HYPERTHYROIDISM N EDEMA N CHRONIC PAIN SYNDROME N HYPOTHYROIDISM N CAROTID BLOCKAGE N CONSTIPATION N BACK / NECK PROBLEMS N ATHEROSCLEROSIS N BREAST PROBLEMS N DIALYSIS N ECZEMA N OSTEOPOROSIS N ARTHRITIS Y APPENDICITIS N DIABETES, TYPE Y BAD TEETH N ENT N HEARTBURN / REFLUX N AUTISM SPECTRUM DISORDER (ASD) N HEPATITIS / LIVER DISEASE Y GOUT N SLEEP DISORDER N ALZHEIMER'S DISEASE N Brain Problems N DEMENTIA N HERPES N SEIZURES/EPILEPSY N HEADACHES/MIGRAINES N VASCULAR DISEASE N PACEMAKER N Blood Disorder N DIZZINESS N HEART DISEASE/HEART PROBLEMS N KIDNEY DISEASE Y MULTIPLE SCLEROSIS N CANCER: SPECIFY N CARDIAC ARRHYTHMIA N ATRIAL FIBRILLATION N Gall Stones N PULMONARY EMBOLISM N AUTOIMMUNE DISEASE N Gynecological History Statement/Question Response How many live births 2 Date of Last Mammogram 06/24/2022 Date of Last Colonoscopy Date of Last Mammogram Most Recent Bone Density 06/24/2022 Date of LMP Date of Last Pap Current Control Method Menopause Obstetrics History GPAL:G 2 P 2 0 0 2 Type Value Multiple Births 0 Full Term 2 Induced 0 Spontaneous 0 Premature 0 Living 2 Ectopics 0 Total 2 Immunizations Vaccine Type Date Status Note Provider Nam e and Address Organization Details Recorded Time COVID-19, mRNA, LNP-S, bivalent, PF, 30 mcg/0.3 mL dose 2 completed Not Available [facility] 11/16/2022 05:06:30 Influenza, high-dose, quadrivalent, PF 2 completed Not Available [facility] 11/16/2022 05:06:30 influenza, intradermal, quadrivalent, preservative free 1 completed Not Available [facility] 11/16/2022 05:06:30 COVID-19, mRNA, LNP-S, PF, 30 mcg/0.3 mL dose 1 completed Not Available [facility] 11/16/2022 05:06:30 SARS-COV-2 (COVID-19) vaccine, UNSPECIFIED 1 completed Not Available [facility] 11/16/2022 05:06:30 SARS-COV-2 (COVID-19) vaccine, UNSPECIFIED 1 completed Not Available [facility] 11/16/2022 05:06:30 Influenza, split virus, quadrivalent, preservative 0 completed Not Available [facility] 11/16/2022 05:06:30 Influenza, split virus, quadrivalent, preservative 0 completed Not Available [facility] 11/16/2022 05:06:31 pneumococcal polysaccharide PPV23 0 completed Not Available [facility] 11/16/2022 05:06:31 Influenza, split virus, quadrivalent, preservative 9 completed Not Available [facility] 11/16/2022 05:06:31 Influenza, split virus, quadrivalent, PF 6 completed Not Available [facility] 11/16/2022 05:06:31 influenza, unspecified formulation 7 completed Not Available [facility] 11/16/2022 05:06:31 Pneumococcal conjugate PCV 13 1 completed Not Available [facility] 11/16/2022 05:06:31 Tdap 8 completed Not Available [facility] 11/16/2022 05:06:31 Influenza, split virus, quadrivalent, PF 5 completed Not Available [facility] 11/16/2022 05:06:31 Influenza, split virus, quadrivalent, PF 8 completed Not Available [facility] 11/16/2022 05:06:31 Past Encounters Encounter ID Performer Location Encounter Start Date Encounter Closed Date Diagnosis/Indication Diagnosis SNOMED-CT Code Diagnosis ICD10 Code Diagnosis IMO Codes Diagnosis Note [id number] Win dee MD [facility] [place] [place] Internal Med [facility] [address] [facility], [facility] [address] [place] [address] 02/04/2021 00:00:00 02/04/2021 15:56:03 [id number] [facility] _ATHENA_ IGRATION_ DEFAULT_1 _1 , 04/23/2021 00:00:00 04/26/2021 09:31:20 [id number] [facility] [place] [address] [place] [address] 06/29/2021 00:00:00 06/29/2021 17:00:43 [id number] Win dee MD [facility] Internal [facility] [place] [address] [facility] [address] [place] [address] 07/05/2021 00:00:00 07/13/2021 10:08:53 [id number] Win dee MD [facility] [place] [address] [place] [address] Ave[address] [address] 07/08/2021 00:00:00 07/08/2021 16:45:12 [id number] Win dee MD [facility] Internal Med [facility] [address] [address] 11/09/2021 00:00:00 11/09/2021 18:30:56 [id number] Julio Cedeño MD [facility] [place] [address] [place] [address] 12/16/2021 00:00:00 12/16/2021 14:29:40 [id number] Julio Cedeño MD [facility] [place] [address] [place] [address] 01/13/2022 00:00:00 01/13/2022 13:46:44 [id number] Julio Cedeño MD [facility] [place] [address] [place] [address] 01/18/2022 00:00:00 01/18/2022 14:31:41 [id number] Julio Cedeño MD [facility] [place] [address] [place] [address] 01/25/2022 00:00:00 01/25/2022 14:26:16 [id number] Julio Cedeño MD [facility] [place] [address] [place] [address] 02/01/2022 00:00:00 02/01/2022 14:20:22 [id number] Julio Cedeño MD [facility] [place] [address] [place] [address] 02/08/2022 00:00:00 02/08/2022 14:50:07 [id number] Win dee MD [facility] [place] [address] [facility] [address] [place] [address] 03/22/2022 00:00:00 03/22/2022 14:19:48 [id number] [facility] _ATHENA_M IGRATION_ DEFAULT_1 _1 , 05/13/2022 00:00:00 05/15/2022 11:08:23 [id number] Aidee Robert, [facility] [place] [address] [place] [address] 06/29/2022 00:00:00 06/29/2022 15:35:26 [id number] Win dee MD [facility] Internal Med [facility] [address] [facility] [address] [address] 07/11/2022 00:00:00 07/11/2022 14:13:46 [id number] Win dee MD [facility] Internal Med [facility] [address] [facility] [address] [address] 07/19/2022 00:00:00 07/19/2022 15:48:39 [id number] Julio Cedeño MD [facility] [place] [address] [place] [address] 08/30/2022 00:00:00 08/30/2022 14:41:51 [id number] Julio Cedeño MD [facility] [place] [address] [place] [address] 09/06/2022 00:00:00 09/06/2022 14:40:26 [id number] Julio Cedeño MD S[facility] [place] [address] [facility] [address] [place] [address] 09/13/2022 00:00:00 09/13/2022 15:08:10 [id number] Julio Cedeño MD [facility] [address] [facility], [address] [place] [address] 11/15/2022 00:00:00 11/15/2022 10:07:00 [id number] Win dee MD [facility] Internal [facility] [place] [address] [facility], [place] [address] [place] [address] 12/08/2022 13:51:45 12/08/2022 14:57:25 Motion sickness [id number] T75.3XXA On scopalamin e as needed Screening - NAD 09268202 3 Z13.9 C-scope: 11/15/12, next in 7-[address] Moncada nC-scope: 09/21/2022 : Dr Chowdhury Mammogram: 02/28/17: Neg 8: Neg 9: Neg 020: Neg 021: Neg 022: Neg DEXA: 06/11/2020 : Osteopenia , can do OTC ca and vit dDEXA: 06/24/2022 : WNL PAP: She has had her WWE with [employer]CHNICIAN Gladys 09/15/17Se en Venita Eckert [employer] 07/11/2022 Get yearly on flu shotUTD TDap 18UTD COVID 19 vaccineUTD on PCV #13 and #23 RTC in 4 monthswith labsER if worseshe did verbalize her understand ing of the above Essential hypertension 32800679 I10 On lisinopril 2.5mg dailyOn felodipine ER 5mg dailyDoes well Hyperlipidemia 19212743 E78.5 On atorvastat in 40mg daily Not on vascepa, declines d/t costGet labs 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 546319968 E11.9 On metforminO n ozempicOn jardiance 25mg dailyDoes well Dr Cuello 05/13/2022 Chronic ki dney disease 699607334 N18.[address] Dennis Increased liver function 71371580 R94.5 US abd: 05/03/19: Fatty liverKeep apt with hepatology , is to get a fibroscan Gastroesop hageal reflux disease without esophagitis 084560871 K21.9 On PPITake as needed Erythrocytosis 722084172 D75.1 Dr Carrion last OV 06/15/2022 Obstructiv e sleep apnea syndrome 98367540 G47.33 See pulmonary, Aidee Robert [employer], next 06/26/2023 Pain of bi lateral knee joints 2136101563 29960 M25.561 M25.562 Aravind VILLANUEVA ortho, last 02/08/2022 , s/p shots, referred again [id number] Alexander Bang DPM [facility] [place] [address] [facility] [address] [place] [address] 03/23/2023 15:33:05 03/23/2023 17:42:10 Diabetic peripheral neuropathy 953083958 E11.40 Patient educated on neuropathy , diabetes, diabetic diet, and daily foot exams. Patient is to check feet daily for new wounds, blisters, redness to prevent infection and ulceration s to the feet. Patient will return to clinic in 3 months for diabetic foot workup. Dystrophia unguium 15116 009 L60.3 Nails 1 through 10 were debrided with sharp mechanical debridemen t without incident. Nails were debrided and greater than 50% length and thickness where needed. [id number] Win dee MD [facility] Internal Med [facility] [address] [facility] [place] [address] [place] [address] 06/15/2023 11:52:15 06/15/2023 12:26:43 Screening - NAD 410495625 Z13.9 C-scope: 11/15/12, next in 7-[address] Moncada nC-scope: 09/21/2022 : Dr Chowdhury Mammogram: 17: Neg 8: Neg 9: Neg 020: Neg10/04/2 021: Neg 022: Neg DEXA: 06/11/2020 : Osteopenia , can do OTC ca and vit dDEXA: 06/24/2022 : WNL PAP: She has had her WWE with [employer]ICIAN Gladys 09/15/17Se en Venita Eckert [employer]CHNICIAN 07/11/2022 Get yearly on flu shotUTD TDap 09/19/18UTD COVID 19 vaccine and the latest doseUTD on PCV #13 and #23Get RSV vaccine RTC in 6 months as per her wisheswith labsER if worseshe did verbalize her understand ing of the above Essential hypertension 39415374 I10 On lisinopril 2.5mg dailyOn felodipine ER 5mg dailyDoes well Hyperlipidemia 97097198 E78.5 On atorvastat in 40mg dailyNow on icosapentM ore diet and exercise is neededGet labs 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 147509709 E11.9 On metforminO n ozempicOn jardiance 25mg dailyDoes well Dr Cuello 05/13/2022 Chronic ki dney disease 121787436 N18.[address] Dennis Increased liver function 28865998 R94.5 US abd: 05/03/19: Fatty liverKeep apt with hepatology , is to get a fibroscan Gastroesop hageal reflux disease without esophagitis 867080440 K21.9 On PPITake as needed Erythrocytosis 138192326 D75.1 Dr Carrion last OV 06/15/2022 Obstructiv e sleep apnea syndrome 66169493 G47.33 See pulmonary, Aidee Robert [employer], next 06/26/2023 Pain of bi lateral knee joints 8771383398 68921 M25.561 M25.562 Aravind VILLANUEVA ortho, last 02/08/2022 , s/p shots, 11/15/2022 , does well now Motion sickness 41143735 T75.3XXA On scopalamin e as needed Screening mammography 24 516979 Z12.31 [id number] Aidee Robert, [facility] [place] [address] [place] [address] 07/28/2023 14:14:25 07/28/2023 14:53:35 Obstructive sleep apnea syndrome 00923503 G47.33 T3 home study on 07/02/19 with AHI 5.1Machine set up 09/17/19Do wnload today for the last 30 days with 100% use greater than 4 4 hoursShe is on PAP 6cm H2OAHI is 0.4She has good use and clinical benefit.OS A is well correctedE ncouraged 100% compliance with all sleepFollo w with PCM for labsAdvise d good sleep habits and patterns:- Set a goal for at least 7 to 8 hours of sleep time per day.-Use the bed mainly for sleep and to go to bed only when tired. If unable to fall asleep after 30 minutes, patient should get out of bed but should not engage in any activity that requires sustained mental alertness. -Maintain a regular bedtime and wake-up time even on weekends or days off of work.-Avoi d excessive naps during the daytime. If a nap is necessary, limit it to no more than 30minutes. -Minimize environmen franky noise, bright lights, and extremes in bedroom temperatur e.-Avoid alcohol, caffeinate d beverages, and nicotine products for at least 6 hours prior to bedtime.-A void strenuous exercise and large meals for at least 4 hours prior to bedtime. [id number] Andrea Mao MD [facility] [place] [place] [facility] [place] [address] [place] [address] 12/04/2023 10:50:11 12/04/2023 11:23:36 Bilateral osteoarthritis of knees 0398196973 23714 M17.0 Knee pain 56877711 M25.5 61 M25.275 [id number] Andrea Mao MD [facility] [place] [place] [facility] [place] [address] [place] [address] 12/11/2023 10:57:19 12/11/2023 11:53:58 Bilateral osteoarthritis of knees 0625298406 85072 M17.0 Pain of bi lateral knee joints 4698027019 78455 M25.561 M25.399 [id number] Andrea Mao MD [facility]_[address], [address] [place] [address] 12/19/2023 10:22:54 12/19/2023 10:44:29 Bilateral osteoarthritis of knees 1770898167 33793 M17.0 Pain of bi lateral knee joints 2478140850 54664 M25.561 M25.526 [id number] Win dee MD [facility] Internal Med [facility] [address] [facility], [place] [address] [place] [address] 01/11/2024 11:43:54 01/11/2024 12:39:42 Screening - NAD 785470787 Z13.9 C-scope: 11/15/12, next in 7-[address] Moncada nC-scope: 09/21/2022 : Dr Chowdhury Mammogram: 02/28/17: Neg 8: Neg 9: Neg 020: Neg 021: Neg 022: Neg 023: Neg DEXA: 06/11/2020 : Osteopenia , can do OTC ca and vit dDEXA: 06/24/2022 : WNL PAP: She has had her WWE with [employer]IC[employer] Gladys 09/15/17Se en Venita Eckert [employer] 07/11/2022 Get yearly on flu shotUTD TDap 09/19/17UTD COVID 19 vaccine and the latest doseUTD on PCV #13 and #23Get shingrix vaccineGet RSV vaccine RTC in 6 months as per her wisheswith labsER if worseshe did verbalize her understand ing of the above Essential hypertension 69438201 I10 BP 116/66 01/11/2024 On lisinopril 2.5mg dailyOn felodipine ER 5mg dailyDoes well Hyperlipidemia 51817447 E78.5 On atorvastat in 40mg dailyNow on icosapentM ore diet and exercise is neededGet labs 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 083270929 E11.9 On metforminO n ozempic 2mg weekly, again states no MEN2 or MCT or thyroid, parathyroi d or pancreatic or GI issues with thisOn jardiance 25mg dailyDoes well Dr Cuello 05/13/2022 Chronic ki dney disease 801332514 N18.[address] Dennis Increased liver function 59137706 R94.5 abd: 05/03/19: Fatty liverKeep apt with hepatology , is to get a fibroscan Gastroesop hageal reflux disease without esophagitis 261358853 K21.9 On PPITake as needed Erythrocytosis 536141781 D75.1 Dr Carrion last OV 06/15/2022 Obstructiv e sleep apnea syndrome 96260757 G47.33 See pulmonary, Aidee Robert [employer], next 06/26/2023 Pain of bi lateral knee joints 5726540406 69513 M25.561 M25.562 Aravind VILLANUEVA ortho, last 02/08/2022 , s/p shots, 11/15/2022 , does well now Motion sickness 69179618 T75.3XXA On scopalamin e as needed Screening mammography 24 802947 Z12.31 Upper resp iratory infection 01537358 J06.9 Declines any testingSta rt on z-pack, notify if not better Adult heal th examination 608156691 Z00.00 Screening for disorder 928651301 Z13.9 [id number] Alexander Bang DPM [facility] [place] [address] [facility] [address] [place] [address] 04/09/2024 16:04:29 04/11/2024 14:06:27 Diabetic peripheral neuropathy 945771559 E11.40 Patient educated on neuropathy , diabetes, diabetic diet, and daily foot exams. Patient is to check feet daily for new wounds, blisters, redness to prevent infection and ulceration s to the feet. Patient will return to clinic in 3 months for diabetic foot workup. Dystrophia unguium 15371 009 L60.3 Nails 1 through 10 were debrided with sharp mechanical debridemen t without incident. Nails were debrided and greater than 50% length and thickness where needed. Bone spur of right foot 1003169661 70375 M25.774 Bone spur of left foot 9952757799 28955 M25.775 XR, foot, 3 or more viewbone spur of left footM25.77 5 Osteophyte , [id number] Win dee MD [facility] Internal Med [facility] [address] [facility], [facility] [address] [place] [address] 07/16/2024 13:46:25 07/16/2024 14:20:29 Essential hypertension 05011114 I10 On lisinopril 2.5mg dailyOn felodipine ER 5mg dailyDoes well Screening - NAD 99474197 3 Z13.9 C-scope: 11/15/12, next in 7-[address] Moncada nC-scope: 09/21/2022 : Dr Chowdhury Mammogram: 02/28/17: Neg 8: Neg 9: Neg 020: Neg 021: Neg 022: Neg 023: Neg DEXA: 06/11/2020 : Osteopenia , can do OTC ca and vit dDEXA: 06/24/2022 : WNL PAP: She has had her WWE with [employer] TECHNICIAN Gladys 09/15/17Se en Venita Eckert [employer]IAN 07/11/2022 Get yearly on flu shotUTD TDap //18UTD COVID 19 vaccine and the latest doseUTD on PCV #13 and #23Get shingrix vaccineGet RSV vaccine RTC in 6 months as per her wisheswith labsER if worseshe did verbalize her understand ing of the above Hyperlipidemia 01243456 E78.5 On atorvastat in 40mg dailyOn icosapentM ore diet and exercise is neededGet labs 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 [id number] E11.9 On metformin ER 500mg bid, d/c this 07/16/2024 On ozempic 2mg weekly, again states no MEN2 or MCT or thyroid, parathyroi d or pancreatic or GI issues with thisOn jardiance 25mg dailyDoes well Dr Cuello 05/13/2022 Chronic ki dney disease [id number] N18.[address] Dennis Increased liver function 85226478 R94.5 US abd: 05/03/19: Fatty liverKeep apt with hepatology , is to get a fibroscan Gastroesop hageal reflux disease without esophagitis 684403686 K21.9 On PPITake as needed Erythrocytosis 246191243 D75.1 Dr Carrion last OV 06/15/2022 Obstructiv e sleep apnea syndrome 45079036 G47.33 See pulmonary, Aidee Robert [employer], next 06/26/2023 Pain of bi lateral knee joints 6690744548 84562 M25.561 M25.562 Aravind VILLANUEVA ortho, last 02/08/2022 , s/p shots, 11/15/2022 , does well now Motion sickness 79016433 T75.3XXA On scopalamin e as needed Screening mammography 24 312412 Z12.31 Screening for osteoporosis 893818016 Z13.222 [id number] Andrea Mao MD [facility] [address], [place] [address] 9 09/24/2024 10:27:07 09/24/2024 10:49:06 Bilateral osteoarthritis of knees 4441632520 21399 M17.0 Pain of bi lateral knee joints 2154670918 72221 M25.561 M25.139 [id number] Neha Lazar MD [facility] [place] [place] Pulmonolo gy [address], [address] [place] [address] 09/30/2024 10:52:09 10/02/2024 15:20:39 Obstructive sleep apnea syndrome 32584308 G47.33 [id number] Andrea Mao MD [facility]_[address], [place] [address] 10/01/2024 10:33:06 10/01/2024 11:28:47 Bilateral osteoarthritis of knees 0824000674 76464 M17.0 Pain of bi lateral knee joints 0480874788 44151 M25.561 M25.497 [id number] Andrea Mao MD [facility] [address], [place] [address] 9 10/08/2024 10:22:44 10/08/2024 11:14:20 Bilateral osteoarthritis of knees 2949154352 03844 M17.0 Pain of bi lateral knee joints 9338251575 63844 M25.561 M25.910 [id number] Andrea Mao MD Z[facility] [address] [place] [address] 12/19/2024 13:19:40 12/19/2024 14:57:15 Bilateral osteoarthritis of knees 9382912806 55967 M17.0 Pain of bi lateral knee joints 5445448537 90602 M25.561 M25.315 [id number] Neha Lazar MD [facility] Pulmonolo gy [address] [address] 12/30/2024 13:52:45 12/31/2024 09:34:56 Obstructive sleep apnea syndrome 86287281 G47.33 [id number] Win dee MD [facility] Internal Med [facility] [address] [place] [address] 01/14/2025 14:03:05 01/14/2025 14:37:01 Essential hypertension 13223014 I10 On lisinopril 2.5mg dailyOn felodipine ER 5mg dailyDoes well Screening - NAD 80686505 3 Z13.9 C-scope: 11/15/12, next in 7-[address] Moncada nC-scope: 09/21/2022 : Dr Chowdhury Mammogram: 02/28/17: Neg 8: Neg 9: Neg 020: Neg 021: Neg 022: Neg 023: Neg 024: Neg DEXA: 06/11/2020 : Osteopenia , can do OTC ca and vit dDEXA: 06/24/2022 : WNLDEXA: 07/31/2025 : Osteopenia can do Ca and vit d PAP: She has had her WWE with [employer] Gladys 09/15/17Se en Venita Eckert [employer] 07/11/2022 Get yearly on flu shotUTD TDap /2/18UTD COVID 19 vaccine and the latest doseUTD on PCV #13 and #23Get shingrix vaccineGet RSV vaccine RTC in 6 months as per her wisheswith labsER if worseshe did verbalize her understand ing of the above Hyperlipidemia 21314336 E78.5 On atorvastat in 40mg dailyOn icosapentM ore diet and exercise is neededGet labs 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 825993074 E11.9 On metformin ER 500mg bid, d/c this 07/16/2024 On ozempic 2mg weekly, again states no MEN2 or MCT or thyroid, parathyroi d or pancreatic or GI issues with thisOn jardiance 25mg dailyDoes well Dr Cuello 05/13/2022 Chronic ki dney disease 110907147 N18.[address] Dennis Increased liver function 32047336 R94.5 abd: 05/03/19: Fatty liverKeep apt with hepatology , is to get a fibroscan Gastroesop hageal reflux disease without esophagitis 476060445 K21.9 On PPITake as needed Erythrocytosis 550536411 D75.1 Dr Carrion last OV 06/15/2022 Obstructiv e sleep apnea syndrome 41744935 G47.33 See pulmonary, Aidee Robert [employer], next 06/26/2023 Pain of bi lateral knee joints 7340645506 62644 M25.561 M25.562 Aravind VILLANUEVA ortho, last 02/08/2022 , s/p shots, 11/15/2022 , does well now Motion sickness 08331765 T75.3XXA On scopalamin e as needed Vitamin D deficiency 347 96764 E55.9 [id number] [place] Mao MD [facility] [place] [place] [facility] [place] [address] [place] [address] 04/08/2025 14:37:57 04/08/2025 15:04:20 Bilateral osteoarthritis of knees 8236843613 98168 M17.0 [id number] Andrea Mao MD [facility] [place] [place] [facility] [place] [address] [place] [address] 04/15/2025 14:45:40 04/15/2025 16:04:32 Bilateral osteoarthritis of knees 3994132889 50562 M17.0 [id number] Alexander Bang DPM [facility] [place] [address] [facility] [address] [place] [address] 04/15/2025 16:32:07 04/21/2025 15:46:45 Type 2 diabetes mellitus 37823966 E11.9 [id number] Continue diabetic control per PCP recommenda tionContin ue supportive shoe gearFollow -up 1 year Dystrophia unguium 13701 009 L60.3 1009 Nails 1 through 10 were debrided with sharp mechanical debridemen t without incident. Nails were debrided and greater than 50% length and thickness where needed. [id number] Andrea Mao MD [facility] [place] [address] [place] [address] 04/29/2025 14:41:00 04/29/2025 15:30:20 Bilateral osteoarthritis of knees [id number] 40557 M17.0 Pain of bi lateral knee joints 7396807880 82722 M25.561 M25.562 Health Concerns Section Related Observation LastModified by Organization Detai ls LastModified Time None Recorded Concern Status LastModified by Organization Details LastModified Time None Recorded Advance Directives Directive Y: Payers Insurance Date Sequence Insurance Name Policy Number Policy Abdul Covered Member ID Abdul Member ID Guarantor Name 04/28/2025 1 [place] Anat A Cecelia [id number] Anat A Cecelia 05/06/2025 2 [place] 113 Anat A Cecelia [id number] Anat A Cecelia Notes Date Note Type Note Provider Name and Address Organization Details Recorded Time 01/14/2025 text/html Here to establish carePast Hx:HTNDMIIHLDGERDRev iewed social family and surgical historyWants to discuss all of the above and get labs doneOV 03/27/18:Here for her routine aptShe is doing well at this timeShe has had a fracture on the L ankle 10 years ago and now has pain at the back of the heel with walkingHas also noted swelling OV 06/26/18:Here for her routine aptShe states that she is doing well at this timeNo recent labs OV 12/25/18:Here for her routine aptShe feels Anjana has done labs thru Dr Kent 05/14/19:Here for her routine aptShe states that she did do the labs last monthFeels Anjana feels that she is tired in the am and does snore at bedtime and does have EDSOV 09/24/2019:Here for her routine aptWants to discuss her labsIs doing well otherwiseOV 01/02/2020:Here for televisit and is agreeable to do soSdavid feels Anjana did do the labs on 12/25/2019Her ROS is negativeOV 05/28/2020:Here for her routine aptShe feels Anjana did do the labsShe has seen Binta Eckert [employer] for her WWEOV 10/01/2020:Here for her routine aptShe feels Anjana has done the labs OV 02/04/2021:Here for her routine aptShe is doing very Anjana did do the labs and is here to review these OV 07/08/2021:Here for her routine aptShe is doing Anjana has done her labs on 06/18/2021OV 11/09/2021:Here for her routine aptShe is doing very Anjana did do the labs on 2OV 03/22/2022:Here for her routine aptShe is doing well, she did do the labsOV 07/19/2022:Here for her f/u apt and MWV, she did do the labs on 07/05/2022 OV 12/08/2022:Here for her f/u apt, she is doing well, is to go on a cruise again, did do the labs OV 06/15/2023: Here for her routine apt, she is doing well today OV 01/11/2024: Here for her f/u apt, she is c/o some sinus congestion, no fevers or chills, no cough, no loss of smell or taste, no chest pain OV 07/16/2024: Here for her f/u apt, she is doing well she did do the labs on 06/27/2024 OV 01/14/2025: Here for her f/u apt, she did do the labs and is doing very well, is to see Dr Dennis and Dr Carrion, also is planning a trip to [place] in the summer Win Garcia MD [address], [address], [place], [address], [employer] 01/14/2025 15:30:51 04/08/2025 text/html the patient returns for Orthovisc injection number 1 both knees. The patient has severe primary osteoarthritis of both knee joints with pagl-cn-wcrj changes in medial compartments. She has large marginal osteophytes off the medial and lateral patellofemoral articulations as well. She is considering total knee arthroplasty later this year but she has a couple of things to do in a trip planned so she is trying to get by for the next few months with conservative measures. She has had previous gel shots these have worked well for her and she would like to repeat those today she comes in today for the 1st Orthovisc injection. Denies any new problems no new trauma or injury no erythema effusion or signs of infection in either knee. KAY Marrero [address], [address], [place], [address], [employer] 04/08/2025 15:13:26 04/15/2025 text/html The patient returns for Orthovisc injection number two both knees. The patient has severe primary osteoarthritis of both knee joints with bziq-yx-gjtp changes in the medial compartments. She has large marginal osteophytes off the medial and lateral patellofemoral articulations as well. She is considering total knee arthroplasty sometime later this year but in the meantime has other things going on she would like to get some pain relief from gel shots. She has had them previously they worked well for her she states she is already getting excellent relief after the 1st injections last week she comes in today for the 2nd 1 both knees. KAY Marrero [address], [address], [place], [address], [employer] 04/15/2025 15:15:59 04/15/2025 text/html . Patient has a a 69-year-old female diabetic who returns the office for diabetic foot care. Patient states overall she is doing well she denies any new complaints. Alexander Bang DPM [address], [address], [place], [address], [employer] 04/18/2025 10:24:43 04/29/2025 text/html The patient returns for Orthovisc injection number 3 for both knees. She is starting to get some relief from the 1st 2 rounds of injections. She has severe primary osteoarthritis with szie-lz-rlov changes in the medial compartments of both knees. She also has large marginal osteophytes at the medial and lateral patellofemoral articulations. She is considering total knee arthroplasty sometime late this year but in the meantime is trying to get some pain relief to get through the rest of the summer. Gel shots typically worked pretty well for her. She has no significant complaints today. KAY Marrero [address] [facility], [facility] [address], [place], [address], [place] [employer] 04/29/2025 15:03:56 OBGyn Episode No OBEpisode recorded.
== END 2025-07-09 11:56 | disposition home or self-care (01) ==
LOC: ANHSURGERY 11:58
PROVIDERS: Anesthesiology; PCP Internal Medicine; Visit Provider Orthopaedic Surgery
DX: M17.0 Bilateral primary osteoarthritis of knee (principal); N18.9 Chronic kidney disease, unspecified; Z01.818 Encounter for other preprocedural examination
CPT/HCPCS: 36415; 80048; 80307; 82040; 83036; 85025; 85610; 85730; 87081

== ENCOUNTER 2025-08-07 01:29 | Day surgery (SDC) | payer MEDICARE, BC, SELFPAY ==
[2025-07-09 12:13] VITALS: BP 133/85; PULSE 97; RESP 16; TEMP 36.2; O2SAT 97; BMI 35.9
--- NOTE | 2025-07-09 12:30 | PC.NURSE ---
[facility] has started construction of its new state of the art ER which will open Spring 2026. With this, we anticipate parking may be a challenge for some our surgical patients and families. Parking spaces are limited but are available for all Surgical, obstetrics, and ER patients sharing this lot. If you arrive and find you are having a hard time finding a parking space, please note that we understand the challenges, please drive around the hospital and park near Hospital Entrance 1. When you enter this entrance, you can ask a volunteer to direct or take you back to the surgical waiting area to check in. We appreciate everyone?s understanding of these expected challenges while we build for your future. Report to the Outpatient Waiting Room, entrance under the green pavilion located off [address], at time __0930am on date __08/07/25 . Planned Procedure Time: __1130am .? Time changes happen often and if your time is changed the preop area will call you the afternoon before. - You and your visitor will be asked to self-screen and do not enter if you have any COVID symptoms. Please call surgeon if you need to reschedule. - A mask is optional within the hospital at this time. Patients may have clear liquids (water, carbonated beverages, clear teas, apple juice) until 3 hours prior to surgery with a maximum of 20 ounces. - No food from midnight until time of surgery and no smoking, or chewing tobacco (or any form of nicotine). No chewing gum, candy or mints. (0830am) Take only the following medications with a SIP of water on the morning of surgery: ____NONE DO NOT STOP ANY OF YOUR OTHER PRESCRIPTION MEDICATIONS PRIOR TO SURGERY EXCEPT THE FOLLOWING Hold all vitamins and supplements for 3 days per Anesthesia. Date of lasat dose is 08/03/25. Medications to discontinue per physician HOLD VASCEPA, DICLOFENAC, ASPIRIN, and Ozempic all [address] Nunez Date to take last dose 07/30/25 Please no make-up, nail portuguese, hairspray, perfume, deodorant, or body powder the day of surgery.? No jewelry (including any body piercings) or valuables the day of surgery, leave them at home.? Please take a shower or bath the night before, or the morning of, surgery with an antibacterial soap.? Wear comfortable, loose fitting clothing. Overnight bag, tennis shoes, walker and CPAP w ya - Jewelry must be removed prior to entering the operating room.? Rings and piercings that are not removed may be cut off. - The hospital will not accept responsibility for valuables.? - Please leave all valuables, including medications, at home the day of surgery. If you are going home after surgery, a licensed bobcat driver/labor must drive you home.? - NO public transportation without another adult if you receive anesthesia. - We recommend that an adult stay with you for 24 hours following discharge. - We also recommend that you do not drive, make important decision, drink alcoholic beverages, or take any drugs that were not prescribed by your health care provider for at least 24 hours after your discharge time. Follow any additional instructions given to you from your surgeon. Telephone instructions given to __Patient and asked if any additional questions and then verbalized understanding. Patient advised to call surgeon office or pre surgery nurse liaison [phone] if any additional questions.
--- NOTE | 2025-08-06 09:34 | PM.IMHP ---
H&P: HPI History of Present Illness Date/Time: 08/06/25 09:34 Chief Complaint: Bilateral knee DJD Narrative: 70-year-old female presents today for a right total knee arthroplasty with cortisone injection in the left knee. Patient has been having symptoms in both her knees for years. She did have arthroscopy done to the right knee about 10 years ago. She has severe medial compartment osteoarthritis in both knees. She has been treating these with cortisone injections as well as hyaluronic injections to try to help with her symptoms. Last injections were on 04/29 of this year. They were higher on a cast injections and they offered her no improvement of her symptoms. Patient has been taking diclofenac intermittently to try to help with her symptoms. This point she is having symptoms on a daily basis and times it is excruciating and debilitating. She has reached a point where she feels she is ready proceed with total arthroplasty rather than continue nonsurgical treatment. Review of Systems Review of Systems: All systems reviewed & are unremarkable except as noted in HPI and below PMFSH Past Medical History Medical History Diabetes Surgical History Surgical History History of eye surgery both eyes cataract History of knee surgery right meniscus History of cholecystectomy Family History Family History Grandparent Cerebrovascular accident Heart disease Social History Social History (Updated 07/23/25 @ 13:43 by Sherice Barron CMA) Smoking status: Never smoker Second hand tobacco smoke exposure: Yes Alcohol intake: current Alcohol use details: 2 or 3 per Year Substance use: never Substance use type: does not use Do You Feel Safe in your Home?: Yes Lack of Transportation: No Lack of Food: Never True Current Housing: I Have Housing Concerned About Future Housing: No Difficulty Paying Gas/Electric Bills: No Difficulty Paying for Meds: No Currently Unemployed: No Education: High School Diploma/GED Difficulty w/ Childcare or Family Care: No Living arrangements: with family Additional living arrangements comments: Spiritual care concerns: No Meds Home Medications and Allergies Home Medications ?Medication ?Instructions ?Recorded ?Confirmed ?Type aspirin 81 mg capsule 81 mg PO DAILY 09/15/21 07/09/25 History calcium carbonate (Calcium 600) 600 mg PO DAILY 09/15/21 07/09/25 History empagliflozin 25 mg tablet 25 mg PO QAM 09/15/21 07/09/25 History (Jardiance) felodipine 5 mg tablet,extended 5 mg PO DAILY 09/15/21 07/09/25 History release 24 hr lisinopril 20 mg tablet 20 mg PO DAILY 09/15/21 07/09/25 History pantoprazole 20 mg tablet,delayed 20 mg PO QAM 09/15/21 07/09/25 History release Vascepa 1 mg PO BID 09/05/22 07/09/25 History atorvastatin 40 mg tablet (Lipitor) 40 mg PO DAILY 05/21/25 07/09/25 History semaglutide 2 mg/dose (8 mg/3 mL) 2 mg subcut WEEKLY 05/21/25 07/09/25 History subcutaneous pen injector (Ozempic) diclofenac sodium 75 mg 75 mg PO Q12H PRN pain 07/09/25 07/09/25 History tablet,delayed release Allergies Allergy/AdvReac Type Severity Reaction Status Date / Time No Known Allergies Allergy Verified 07/23/25 13:42 Exam Narrative: 78-year-old female alert pleasant. She is 5 ft 2 and 201 lb BMI is 36 point. Right knee range of motion is from 10-125 degrees. No effusion. Normal stability in the knee. Hip range of motion is full without discomfort, negative Stinchfield maneuver. Normal quad strength. 2+ posterior tibial artery pulse palpable absent dorsalis pedis pulse. Normal sensation right lower extremity. There is no edema in either lower extremity. Resp: Auscultation: clear to auscultation bilaterally Cardio: Rate: regular rate Rhythm: regular rhythm Assessment and Plan Assessment and plan (1) Primary localized osteoarthritis of both knees: Code(s): M17.0 - Bilateral primary osteoarthritis of knee Status: Acute Plan 70-year-old female has severe medial compartment osteoarthritis in both knees with continued symptoms. She feels this point she is ready to proceed with total knee arthroplasty rather than continue nonsurgical treatment. She would like to have a cortisone injection left knee at the time surgery. Surgical procedures well as the risks complications were discussed in detail all questions were answered and we will proceed. Patient will see her primary care doctor pre-surgical clearance. She has seen cardiology and has been cleared without additional testing. She will stop her baby aspirin as well as her diclofenac and any other ibuprofen products 1 week prior to surgery. Patient's nasal swab was negative. Hemoglobin A1c was 6.1. Hemoglobin is 15.5 and platelets are 254. Creatinine is 1.07 with GFR at 51. She does have history of stage 3 chronic kidney disease. Due to her diabetes she will be on extended antibiotics postoperatively.
[2025-08-07] VITALS (10 sets, daily range): BP systolic 96–133; BP diastolic 64–77; PULSE 93–104; RESP 12–18; TEMP 36–36.4; O2SAT 90–99
--- NOTE | ~2025-08-07 | XR_ITS ---
EXAMINATION: Right knee 3 views: DATE: 08/07/2025 INDICATION: Postop total knee arthroplasty. TECHNIQUE: AP, crosstable lateral and oblique views were obtained. COMPARISON: None. FINDINGS: Postoperative changes of arthroplasty device is noted in satisfactory alignment. Soft tissue changes reflect surgical changes. IMPRESSION: 1. Satisfactory alignment of the total knee arthroplasty device at the right knee. Reviewed, dictated and finalized at location T. ITION PROFESSOR IMPRESSION: 1. Satisfactory alignment of the total knee arthroplasty device at the right kn ee.
[2025-08-07] MEDS: VANCOMYCIN 1,500 MG/NS 500 ML BAG 250 MG IVPB (10:00)
[2025-08-07] MEDS: LACTATED RINGERS 1,000 ML 30 ML IV CONT ×3 (10:00→17:06)
[2025-08-07] MEDS: ACETAMINOPHEN 500 MG TABLET 1000 MG PO (10:00)
[2025-08-07] MEDS: TRANEXAMIC ACID 1,000MG/ISO100 1,000 MG/100 ML BAG 200 MG IVPB ×2 (11:00→15:56)
--- NOTE | 2025-08-07 12:22 | WPDHPUPDATE1 ---
History and Physical Update Update Date/Time: 08/07/25 12:22 History and Physical has been reviewed, including an updated exam of the patient. There are NO changes in the patient's condition. Risks, benefits, and alternatives have been discussed and questions answered. Patient agrees to proceed with procedure.
--- NOTE | 2025-08-07 13:03 | WPDANESEPPF ---
Anes - Initial Pre Proc Eval Procedure: Operation Date: 08/07/25 11:30 Proposed Procedures p Right Total Knee Arthroplasty, Left Knee Cortisone Injection - Meir Ha MD Date/Time: 08/07/25 13:03 Surgeon: Meir Ha MD Pre Op Diagnosis: oa both knees Patient Data Age: 70 Gender: F Height: 1.6 m Weight: 92.1 kg Last Vital Signs Temp 97.1 F L 08/07/25 10:00 Pulse 99 08/07/25 10:00 Resp 16 08/07/25 10:00 BP 119/77 08/07/25 10:00 Pulse Ox 97 08/07/25 10:00 O2 Del Method Room Air 08/07/25 10:00 Allergies Allergy/AdvReac Type Severity Reaction Status Date / Time No Known Allergies Allergy Verified 08/07/25 11:22 Home Medications ?Medication ?Instructions ?Recorded ?Confirmed ?Type aspirin 81 mg capsule 81 mg PO DAILY 09/15/21 08/07/25 History calcium carbonate (Calcium 600) 600 mg PO DAILY 09/15/21 07/09/25 History empagliflozin 25 mg tablet 25 mg PO QAM 09/15/21 07/09/25 History (Jardiance) felodipine 5 mg tablet,extended 5 mg PO DAILY 09/15/21 07/09/25 History release 24 hr lisinopril 20 mg tablet 20 mg PO DAILY 09/15/21 07/09/25 History pantoprazole 20 mg tablet,delayed 20 mg PO QAM 09/15/21 07/09/25 History release Vascepa 1 mg PO BID 09/05/22 08/07/25 History atorvastatin 40 mg tablet (Lipitor) 40 mg PO DAILY 05/21/25 07/09/25 History semaglutide 2 mg/dose (8 mg/3 mL) 2 mg subcut WEEKLY 05/21/25 08/07/25 History subcutaneous pen injector (Ozempic) diclofenac sodium 75 mg 75 mg PO Q12H PRN pain 07/09/25 08/07/25 History tablet,delayed release Laboratory Tests 08/07/25 08/07/25 10:12 10:36 POC Capillary Glucose 119 H mg/dl (65-105) Blood Type O Positive Antibody Screen Negative Patient hx anesthesia problems: none Family hx anesthesia problems: none Results Review: All pre-operative results and documents have been reviewed as part of the pre-operative evaluation. [facility] Past Medical History Medical History Diabetes Surgical History Surgical History History of eye surgery both eyes cataract History of knee surgery right meniscus History of cholecystectomy Family History Family History Grandparent Cerebrovascular accident Heart disease Social History Social History (Updated 07/23/25 @ 13:43 by Sherice Barron CMA) Smoking status: Never smoker Second hand tobacco smoke exposure: Yes Alcohol intake: current Alcohol use details: 2 or 3 per Year Substance use: never Substance use type: does not use Do You Feel Safe in your Home?: Yes Lack of Transportation: No Lack of Food: Never True Current Housing: I Have Housing Concerned About Future Housing: No Difficulty Paying Gas/Electric Bills: No Difficulty Paying for Meds: No Currently Unemployed: No Education: High School Diploma/GED Difficulty w/ Childcare or Family Care: No Living arrangements: with family Additional living arrangements comments: Spiritual care concerns: No Anes - Eval Final PreProcedure Day of Procedure 08/07/25 13:03 Patient weight: obese Heart: regular rate and rhythm Lungs: clear to auscultation Airway: Mallampati scale class II Neurological: alert and oriented Last oral intake: >/= 8 hours ASA classification: III Emergent: no Anesthetic plan: proceed Anesthesia type and monitoring: general ETT and standard monitoring Results Review: All pre-operative results and documents have been reviewed as part of the pre-operative evaluation. Informed Consent: The patient's anesthetic plan and its attendant risks and benefits were discussed with the patient/family/POA. Questions were solicited and answers provided to the satisfaction of the patient/family/POA.
[2025-08-07] MEDS: ceFAZolin 2 GM in SODIUM CHLORIDE 0.9% IV 50 ML 100 ML IVPB ×2 (13:09→21:02)
[2025-08-07] MEDS: methylPREDNISolone ACETATE 80 MG/ML VIAL IM (13:45)
[2025-08-07] MEDS: LIDOCAINE 1% LOCAL INJ 10 ML VIAL INFILTRATE (13:45)
[2025-08-07] MEDS: SODIUM CHLORIDE 0.9% IV 37.7 ML, MORPHINE SULFATE INJ (*CRX) 2 MG, ROPivacaine HCL 1% 2... INFILTRATE (13:56)
[2025-08-07] MEDS: GENTAMICIN BONE CEMENT REFOBACIN 1 EACH TOPICAL (14:00)
--- NOTE | 2025-08-07 16:56 | W.PM.PROC2 ---
Procedure Note - Detailed Date of Procedure 08/07/25 Pre-op Diagnosis oa both knees Post-op Diagnosis Same Procedure Performed Right total knee replacement, cortisone injection left knee Surgeon Meir Ha MD Courtesy [facility] Driver nicolle Anesthesia General Description of Procedure Patient was brought to the operating room and general anesthesia was administered. The left knee was prepped with ChloraPrep and 80 mg of Depo-Medrol and 4 cc 1% lidocaine were injected into the left knee without difficulty. The right knee replacement was associated with that a difficulty due to her flexion contracture and obesity with BMI of 36. This added approximately 30 minutes to the procedure. The right knee was prepped draped usual fashion. She had a 10 degree flexion contracture under anesthesia. Flexion was to 135. She received 2 g of Ancef weight based vancomycin 1 g of TXA preoperatively. Limb was exsanguinated tourniquet elevated to 300 mmHg. A 7 in longitudinal midline incision was used and a vastus medialis splitting approach utilized splitting the vastus medialis at the level the superior pole of patella. Quadriceps synovectomy carried out in partial excision of the infrapatellar fat pad performed. The patella had normal cartilage throughout. Small inferomedial osteophyte was debrided. I felt given its small size it was most suitable for non resurfacing. A minimal lateral facetectomy was performed. A guide rodger was inserted on femoral canal after aspiration of canal contents using the 5 degree valgus cutting bushing 9 mm of bone removed the distal femur. This removed about 8 laterally. Next the tibial plateau was cut. We attempted to make a skim cut initially but the cut was too shallow and at 90? the medial side barely accepted the 6 mm spacer. Therefore an additional 2 mm of bone was removed from the tibial plateau. Meniscal remnants were excised the PCL was recessed. With this the medial side accepted the 8 mm spacer but it was tight lateral side 11 mm. The femur Sizer was applied set at 3? of external rotation which matched Whitesides line. The 62.5 femoral AP cutting block was applied and this gave a cut just flush with the anterior cortex. AP and chamfer cuts were completed and the size 62.5 fit nicely anterior posterior but overhung mediolateral. It was clear we would have to downsize. The tibia was sized to a vanguard 67 tray which fit line to line anteromedial to posterolateral a proper rotation. This was punched. We trialed with the 10 mm insert which at 90? was too tight with no anterior posterior play. Therefore we removed 1 more mm of bone from the tibial plateau. Again perpendicular to the axis of the tibia. With this done the with the 10 insert trial at 90? the lateral side opened 1.5 to 2 mm the medial side open the same. We lacked approximately 4 or 5? of extension at this point. I felt the rotation of the femur was proper and therefore we downsized the femur to the size 60 at this time by applying a little bit of slope to the distal femoral cuts the the and this gave us a nice flush cut anteriorly with the size 60 cutting block and the size 60 trial fit nicely line to line medial to lateral. We removed an additional 1 mm from the distal femur and removed residual posterior femoral osteophyte medially and performed a complete posterior capsular release from the distal posterior femur. On trialing with the 10 the knee came out to full extension. It opened up 1.5 mm laterally and Medially it opened up 2.5 mm with valgus stress in extension.. We did not perform a medial release of any sort from the tibia other than removing the anteromedial osteophytes as she did not have a significant varus deformity preoperatively. AP stability seemed appropriate with the 10 . With the arthrotomy towel clipped we still had complete full extension with negative bounce. Patellar tracking was central and smooth throughout range of motion. Lug holes were drilled for the femoral component. We had put the tourniquet down earlier at 90 minutes at this point we re-exsanguinated the limb re elevated the tourniquet. The bone surfaces were prepped with the step drill bony surfaces thoroughly irrigated and dried. Using 2 batches of methylmethacrylate 1 with gentamicin powder the cement was immediately applied the size 67 vanguard tibial tray and then the size 60 right CR femoral component. Cement was applied the tibial plateau pressurized in tibial component fully seated. Cement applied the tip femur and the femoral component fully seated the knee brought into extension with 11 mm 5 1 insert for pressurization knee brought to extension. Tourniquet was released 105 minutes. Two additional g of Ancef 1 g TXA given. After cement hardening excess cement was sought for removed and hemostasis was achieved. We trialed with the 10 insert and I thought this was just a little bit loose in flexion to anterior posterior drawer. The size 11 had a few mm of anterior-posterior play symmetrically and still allowed full extension with negative bounce with 1 mm lateral and 2 mm medial opening. We chose the 11 insert which was placed and locked the locking pin range of motion stability patellar tracking reconfirmed. Local anesthetic cocktail was injected the periarticular soft tissues. Arthrotomy was closed with 2. Vicryl and 1. Unidirectional barbed Stratafix suture the split closed with 1. Vicryl. Skin closed with 2 7 days Vicryl 3-0 subcuticular Monocryl and glue EBL was 200 cc. There were no complications she was transferred to postop recovery room in good condition. [facility] Billing Surgery - Charge Forward: Surgery Billing (Right total knee arthroplasty, extra difficulty due to obesity, cortisone shot left knee)
[2025-08-07] MEDS: fentaNYL CITRATE INJ (*CRX) 100 MCG/2 ML VIAL 25 MCG IV PUSH ×2 (17:35→18:00)
--- NOTE | 2025-08-07 18:30 | PC.NURSE ---
This patient, Anat Rai, was admitted to [facility] Surg Room 329-01 at 1830. Patient/family oriented to hospital policies and general routines including ID bracelet, bed and alarms, visiting hours, pain management, procedures, bathroom and other care routines, personal items, smoking policy, room service/diet, and visiting hours. Information on how to activate the Rapid Response Team has been discussed. Patient/Family are encouraged to report perceived risks to care and to ask questions if they do not understand what they are told or what they should do.
[2025-08-07] MEDS: ACETAMINOPHEN 500 MG TABLET PO ×2 (19:37→22:37)
[2025-08-07] MEDS: SENNA/DOCUSATE SODIUM TABLET 2 TAB PO (19:37)
[2025-08-07] MEDS: SODIUM CHLORIDE 0.9% IV 1,000 ML 125 ML IV CONT (19:38)
[2025-08-07] MEDS: oxyCODONE HCL (*CRX) 5 MG TAB IR PO (19:38)
[2025-08-07] MEDS: ONDANSETRON INJ 4 MG/2 ML VIAL IV PUSH (21:06)
--- NOTE | 2025-08-07 21:50 | PM.IMCN ---
Assessment and Plan Assessment and plan (1) Status post total right knee replacement: Code(s): Z96.651 - Presence of right artificial knee joint Status: Acute Assessment and Plan: -postop care per orthopedic physician. -DVT prophylaxis her orthopedic physician. The patient appears to be on apixaban. -pain management per orthopedic physician. -PT OT per orthopedic physician. (2) DM2 (diabetes mellitus, type 2): Code(s): E11.9 - Type 2 diabetes mellitus without complications Status: Acute Assessment and Plan: -Accu-Cheks AC and HS with sliding scale insulin. -A1c was 6.1 -the patient stated that she has been on Ozempic for many years and this is been working well for her. She would not be getting any dose while in the hospital which she can continue it while she is at home. -continue with Jardiance. -her blood sugars have been in the lower 100s. (3) Hypertension: Code(s): I10 - Essential (primary) hypertension Status: Acute Assessment and Plan: -continue with plendil. -blood pressure is currently 133/67. (4) Hyperlipidemia: Code(s): E78.5 - Hyperlipidemia, unspecified Status: Acute Assessment and Plan: -continue with atorvastatin and monitor liver enzymes. (5) Chronic kidney disease: Code(s): N18.9 - Chronic kidney disease, unspecified Status: Acute Assessment and Plan: -continue with Jardiance -last BUN and creatinine were on 07/09/2025 BUN was 15 creatinine 1.07 which GFR 51. -check daily labs. (6) Obstructive sleep apnea: Code(s): G47.33 - Obstructive sleep apnea (adult) (pediatric) Status: Acute Assessment and Plan: -the patient did bring her CPAP with her. We will auto titrate for home settings. Plan Thank you for allowing is to see this patient will continue to comanage alongside you. HPI Date of Consult Consult date: 08/08/25 Requesting Physician: Meir Ha MD Primary Care Provider: Win GarciaMD Consult Narrative Narrative: Anat Rai is a 70 year old female history of degenerative joint disease of both knees, osteoarthritis, and diabetes. She underwent a right total knee replacement, cortisone injection left knee (please see operative note for Dr. Ha). The patient has had cortisone injections in the past. The patient has been having symptoms of both knees for several years. She has had arthroscopic right knee surgery in the past for meniscus tear. The patient was no longer receiving any benefits from further cortisone shots. She stated that her diabetes is pretty much under control and that her last A1c was 6.1. Her blood sugars have been in the lower 100s. She does check her blood sugars daily. The hospitalist was asked to consult for medical management. The date of consult is 08/07/2025. Review of Systems Constitutional: Constitutional: Reports as per HPI and Reports no additional constitutional complaints Eyes: Eyes: Reports as per HPI and Reports no additional eye complaints ENT: Reports system reviewed and no additional complaints, except as documented and Reports Normal hearing present Cardiovascular: Cardiovascular: Reports no additional cardiovascular complaints Respiratory: Respiratory: Reports as per HPI and Reports no additional respiratory complaints Gastrointestinal: Gastrointestinal: Reports as per HPI and Reports no additional gastrointestinal complaints Genitourinary: Genitourinary: Reports no additional female genitourinary complaints Musculoskeletal: Musculoskeletal: Reports no additional musculoskeletal complaints Integumentary/Breasts: Skin/Breast: Reports system reviewed and no additional complaints, except as docu Neurologic: Reports system reviewed and no additional complaints, except as documented and Reports Normal hearing present Psychiatric: Psychiatric: Reports no additional psychiatric complaints and Reports as per HPI Hematologic/Lymphatic: Hematologic/Lymphatic: Reports no additional hematologic/lymphatic complaints Allergic/Immunologic: Allergic/Immunologic: Reports no additional allergic/immunologic complaints [facility] Past Medical History Medical History (Updated 08/07/25 @ 22:37 by Niya Riggs APRN) DM2 (diabetes mellitus, type 2) Hypertension Chronic kidney disease Hyperlipidemia Obstructive sleep apnea Compliant with CPAP Diabetes Surgical History Surgical History (Updated 08/07/25 @ 22:31 by Niya Riggs APRN) History of tonsillectomy and adenoidectomy History of eye surgery both eyes cataract History of knee surgery right meniscus History of cholecystectomy Family History Family History Grandparent Cerebrovascular accident Heart disease Social History Social History (Updated 08/07/25 @ 22:33 by Niya Riggs APRN) Social History: She is and lives with her . She is retired from the [employer]. Code status full code Smoking status: Never smoker Second hand tobacco smoke exposure: Yes Alcohol intake: never Alcohol use details: 2 or 3 per Year Substance use: never Substance use type: does not use Do You Feel Safe in your Home?: Yes Lack of Transportation: No Lack of Food: Never True Current Housing: I Have Housing Concerned About Future Housing: No Difficulty Paying Gas/Electric Bills: No Difficulty Paying for Meds: No Currently Unemployed: No Education: High School Diploma/GED Difficulty w/ Childcare or Family Care: No Living arrangements: with family Additional living arrangements comments: Spiritual care concerns: No Meds Home Medications and Allergies Home Medications ?Medication ?Instructions ?Recorded ?Confirmed ?Type aspirin 81 mg capsule 81 mg PO DAILY 09/15/21 08/07/25 History calcium carbonate (Calcium 600) 600 mg PO DAILY 09/15/21 07/09/25 History empagliflozin 25 mg tablet 25 mg PO QAM 09/15/21 07/09/25 History (Jardiance) felodipine 5 mg tablet,extended 5 mg PO DAILY 09/15/21 07/09/25 History release 24 hr lisinopril 20 mg tablet 20 mg PO DAILY 09/15/21 07/09/25 History pantoprazole 20 mg tablet,delayed 20 mg PO QAM 09/15/21 07/09/25 History release Vascepa 1 mg PO BID 09/05/22 08/07/25 History Held on 08/08/25. Instructions: Resume on 08/23/25. Do not start until 1 day after last dose of Eliquis atorvastatin 40 mg tablet (Lipitor) 40 mg PO DAILY 05/21/25 07/09/25 History semaglutide 2 mg/dose (8 mg/3 mL) 2 mg subcut WEEKLY 05/21/25 08/07/25 History subcutaneous pen injector (Ozempic) Held on 08/08/25. Instructions: Resume on 08/21/25. acetaminophen 500 mg tablet 500 mg PO Q4H #100 tabs 08/08/25 Rx apixaban 2.5 mg tablet (Eliquis) 2.5 mg PO Q12HR #28 tabs 08/08/25 Rx celecoxib 100 mg capsule (Celebrex) 100 mg PO DAILY@0800 #30 caps 08/08/25 Rx doxycycline hyclate 100 mg tablet 100 mg PO Q12HR #24 tabs 08/08/25 Rx oxycodone 5 mg tablet 5 mg PO Q4H PRN Pain Rated 7-10 08/08/25 Rx #40 tabs polyethylene glycol 3350 17 gram 17 g PO QAM #30 ea 08/08/25 Rx oral powder packet (Miralax) sennosides 8.6 mg-docusate sodium 2 tab PO BID #120 tabs 08/08/25 Rx 50 mg tablet (Senokot-S) Allergies Allergy/AdvReac Type Severity Reaction Status Date / Time No Known Allergies Allergy Verified 08/07/25 18:56 Vital Signs Vital Signs - 24 hr 08/07/25 10:00 08/07/25 17:06 08/07/25 17:21 Temperature 97.1 F L 97.6 F Pulse Rate 99 104 H 103 H Respiratory Rate 16 12 12 Blood Pressure 119/77 96/64 L 117/71 Pulse Oximetry 97 95 99 Oxygen Delivery Room Air Simple Face Mask Simple Face Mask Oxygen Flow Rate 8 8 08/07/25 17:26 08/07/25 17:35 08/07/25 17:50 Temperature Pulse Rate 101 H 102 H Respiratory Rate 12 13 Blood Pressure 124/67 132/77 Pulse Oximetry 98 98 96 Oxygen Delivery Room Air Nasal Cannula Nasal Cannula Oxygen Flow Rate 2 2 08/07/25 18:05 08/07/25 18:59 08/07/25 21:27 Temperature 97.6 F 97.2 F L 96.8 F L Pulse Rate 95 93 95 Respiratory Rate 12 18 16 Blood Pressure 126/75 121/66 133/67 Pulse Oximetry 96 90 95 Oxygen Delivery Nasal Cannula Oxygen Flow Rate 2 Exam Const: General: cooperative, healthy appearing, comfortable, no acute distress, well developed, awake, Physically active, average body habitus and well nourished Nutritional Appearance: average body habitus and well nourished Orientation/consciousness: oriented to person, oriented to place, oriented to time and patient oriented x3 Limitations: no limitations HENMT: Head: normal to inspection, No palpable skull fracture present, normocephalic, atraumatic and abrasion Ears: hearing grossly normal bilaterally and external ears normal Eyes: EOM: EOMs intact bilaterally Neck: Neck: normal visual inspection and full ROM Chest: Chest palpation & inspection: normal inspection of the chest Resp: Effort & Inspection: normal respiratory effort Auscultation: clear to auscultation bilaterally Cardio: Palpation: normal PMI Rate: regular rate Rhythm: regular rhythm Heart sounds: S1 normal heart sound present and S2 normal heart sound present Peripheral pulses: Peripheral pulses 2+ throughout GI: Inspection: normal to inspection Percussion: Yes normal to percussion Auscultation: normal bowel sounds Rectal Exam: deferred : General: Yes no CVA tenderness Back/Spine/Pelvis: Back: no CVA tenderness Cervical Spine: cervical ROM normal Thoracic/Lumbar Spine: thoracic and lumbar spine normal to inspection Pelvis: no pain with anterior-posterior compression Skin: General skin exam: normal color Lesions: no lesions Rashes: no rashes Trauma: no lacerations or abrasions Wounds: no wounds Hair: normal Nails: normal Neuro: General: oriented to person, oriented to place, oriented to time and patient oriented x3 Cranial nerves: Yes Equal, round and reactive pupils present and Yes Normal hearing present Cognition (Neuro): normal cognition Sensory Exam: normal sensation Extrem: Right lower extremity: normal to inspection Left lower extremity: normal to inspection Other: Large dressing over right knee dry and intact without any drainage. A Band-Aid intact to left knee. Psych: Appearance: grossly normal Mental Status: mental status grossly normal Speech and movement: Normal speech and movement present Affect: normal affect Attitude: cooperative Thought process: Normal thought process present Thought content: Yes Normal thought content present Insight: Good insight present (Psych) Judgement: Good judgement present (Psych) Results Labs 08/08/25 12:29 08/08/25 05:54 Imaging Radiologist's impression: ITS Impressions Knee X-Ray 08/07/25 17:17 IMPRESSION: 1. Satisfactory alignment of the total knee arthroplasty device at the right knee. Quality VTE Prophylaxis VTE prophylaxis: pharmacologic ordered
[2025-08-07] MEDS: VANCOMYCIN HCL 1,000 MG in SODIUM CHLORIDE 0.9% IV 250 ML 250 MG IVPB (23:00)
[2025-08-08] MEDS: ACETAMINOPHEN 500 MG TABLET PO ×4 (01:43→13:28)
[2025-08-08 02:29] VITALS: BP 134/72; PULSE 95; RESP 14; TEMP 36; O2SAT 95
[2025-08-08 02:45] VITALS: PULSE 95; O2SAT 98
[2025-08-08] MEDS: ceFAZolin 2 GM in SODIUM CHLORIDE 0.9% IV 50 ML 100 ML IVPB ×2 (04:27→12:51)
[2025-08-08] MEDS: oxyCODONE HCL (*CRX) 5 MG TAB IR PO ×3 (04:27→13:28)
[2025-08-08 05:15] VITALS: BP 134/72; PULSE 103; RESP 14; TEMP 36.3; O2SAT 95
[2025-08-08 06:13] LABS: Hematocrit 40.7 % (37.0-47.0); Hemoglobin 13.3 g/dL (12.0-15.0); Immature Granulocyte Percent A 0.8 % (0-0.5); Lymphocytes Absolute Auto 1.06 K/mm3 (0.9-3.2); Mean Corpuscular HGB Conc 32.7 g/dl (32-36); Mean Corpuscular Hemoglobin 30.1 pg (26-34); Mean Corpuscular Volume 92.1 fl (80-100); Nucleated Red Blood Cells Absolute Auto 0.000 K/mm3 (0.0-0.012); Nucleated Red Blood Cells Perc 0.0 % (0.0-0.2); Platelet Count Result 218 k/mm3 (150-375); Red Blood Count 4.42 M/mm3 (4.2-5.4); White Blood Count 15.4 K/mm3 (4.5-10.0)
[2025-08-08 06:35] LABS: Anion Gap 10 mmol/L (4-12); Blood Urea Nitrogen 17 mg/dL (7-17); Calcium 8.5 mg/dL (8.4-10.2); Carbon Dioxide 21 mmol/L (22-30); Chloride 105 mmol/L (98-107); Estimated CRCL calculation 48 ml/min; Estimated Glomerular Filt Rate 52; Glucose 130 mg/dL (65-110); Potassium 4.4 mmol/L (3.4-5.0); Sodium 136 mmol/L (137-145)
[2025-08-08 08:00] VITALS: PULSE 103; RESP 14; O2SAT 94
[2025-08-08] MEDS: ASPIRIN 81 MG CHEWABLE TABLET PO (08:47)
[2025-08-08] MEDS: CELECOXIB 100 MG CAPSULE PO (08:48)
[2025-08-08] MEDS: FELODIPINE ER 5 MG TAB PO (08:49)
[2025-08-08] MEDS: PANTOPRAZOLE SOD SESQUIHYDRATE 20 MG TAB PO (08:49)
[2025-08-08] MEDS: APIXABAN 2.5 MG TABLET PO (08:49)
[2025-08-08] MEDS: ATORVASTATIN 40 MG TABLET PO (08:49)
[2025-08-08] MEDS: CALCIUM CARBONATE (OSCAL) 500 MG TABLET PO (08:49)
[2025-08-08] MEDS: EMPAGLIFLOZIN 25 MG TABLET PO (08:49)
[2025-08-08] MEDS: SENNA/DOCUSATE SODIUM TABLET 2 TAB PO (08:50)
[2025-08-08] MEDS: DOXYCYCLINE HYCLATE 100 MG TABLET PO (08:59)
[2025-08-08 09:50] VITALS: O2SAT 94
[2025-08-08 10:29] VITALS: BP 117/64; PULSE 92; RESP 14; TEMP 36.2; O2SAT 97
[2025-08-08] MEDS: VANCOMYCIN HCL 1,000 MG in SODIUM CHLORIDE 0.9% IV 250 ML 250 MG IVPB (10:29)
--- NOTE | 2025-08-08 10:36 | PM.PNORT ---
Progress Note: A&P Assessment and Plan (1) Status post total right knee replacement: Code(s): Z96.651 - Presence of right artificial knee joint Status: Acute Assessment and Plan: Patient is now postop day 1 after right total knee arthroplasty in cortisone shot in her left knee diagnosis osteoarthritis both knees. This morning she was doing very well. She has very little pain. Her labs this morning look fine. Hemoglobin remains normal at 13.3. Her creatinine is 1.05 with GFR of 52 which is unchanged compared with her preop labs. She does use nonsteroidal anti-inflammatory medications chronically. The we planned to use low-dose Celebrex 100 mg daily for pain control after surgery. Her dressing is dry she is neurologically intact the right leg. She does a straight leg raise easily and gets out of bed easily. She feels she is ready to go home today. She will be discharged after home physical therapy. Precautions were discussed. Subjective Subjective Date/Time Seen: 08/08/25 10:36 Objective Data Vital Signs Vital Signs: Vital Signs - 24 hr 08/07/25 17:06 08/07/25 17:21 08/07/25 17:26 Temperature 36.4 C Pulse Rate 104 H 103 H Respiratory Rate 12 12 Blood Pressure 96/64 L 117/71 Pulse Oximetry 95 99 98 Oxygen Delivery Simple Face Mask Simple Face Mask Room Air Oxygen Flow Rate 8 8 08/07/25 17:35 08/07/25 17:50 08/07/25 18:05 Temperature 36.4 C Pulse Rate 101 H 102 H 95 Respiratory Rate 12 13 12 Blood Pressure 124/67 132/77 126/75 Pulse Oximetry 98 96 96 Oxygen Delivery Nasal Cannula Nasal Cannula Nasal Cannula Oxygen Flow Rate 2 2 2 08/07/25 18:59 08/07/25 21:27 08/07/25 21:32 Temperature 36.2 C L 36.0 C L Pulse Rate 93 95 Respiratory Rate 18 16 Blood Pressure 121/66 133/67 Pulse Oximetry 90 95 Oxygen Delivery Room Air Oxygen Flow Rate 08/07/25 22:45 08/08/25 02:29 08/08/25 02:45 Temperature 36.0 C L Pulse Rate 99 95 95 Respiratory Rate 14 Blood Pressure 134/72 Pulse Oximetry 98 95 98 Oxygen Delivery CPAP CPAP Oxygen Flow Rate 08/08/25 05:15 08/08/25 08:00 08/08/25 08:49 Temperature 36.3 C L Pulse Rate 103 H 103 H Respiratory Rate 14 14 Blood Pressure 134/72 Pulse Oximetry 95 94 Oxygen Delivery Room Air Room Air Oxygen Flow Rate 08/08/25 09:23 08/08/25 09:50 Temperature Pulse Rate Respiratory Rate Blood Pressure Pulse Oximetry 94 Oxygen Delivery Room Air Room Air Oxygen Flow Rate Intake/Output Intake/Output: Intake & Output 08/05/25 08/06/25 08/07/25 08/08/25 23:59 23:59 23:59 23:59 Intake Total 300 568 Balance 300 568 Meds/Results Medications: Active Medications Generic Name Dose Route Start Last Admin Trade Name Freq PRN Reason Stop Dose Admin Acetaminophen 500 mg 08/07/25 18:00 08/08/25 10:14 Acetaminophen 500 Mg Tablet PO 500 mg Q4H TO Administration Apixaban 2.5 mg 08/08/25 09:00 08/08/25 08:49 Apixaban 2.5 Mg Tablet PO 2.5 mg Q12HR TO Administration Aspirin 81 mg 08/08/25 08:00 08/08/25 08:47 Aspirin 81 Mg Chewable Tablet PO 81 mg DAILY@0800 TO Administration Atorvastatin Calcium 40 mg 08/08/25 09:00 08/08/25 08:49 Atorvastatin 40 Mg Tablet PO 40 mg DAILY TO Administration Calcium Carbonate 500 mg 08/08/25 09:00 08/08/25 08:49 Calcium Carbonate (Oscal) 500 Mg Tablet PO 500 mg QAM TO Administration Celecoxib 100 mg 08/08/25 08:00 08/08/25 08:48 Celecoxib 100 Mg Capsule PO 100 mg DAILY@0800 TO Administration Dextrose 12.5 gm 08/07/25 22:28 Dextrose 50% 25 Gm/50 Ml Syringe IV PUSH PRN PRN Hypoglycemia Protocol Doxycycline Hyclate 100 mg 08/08/25 09:00 08/08/25 08:59 Doxycycline Hyclate 100 Mg Tablet PO 08/20/25 08:59 100 mg Q12HR TO Administration Empagliflozin 25 mg 08/08/25 09:00 08/08/25 08:49 Empagliflozin 25 Mg Tablet PO 25 mg QAM TO Administration Felodipine 5 mg 08/08/25 09:00 08/08/25 08:49 Felodipine Er 5 Mg Tab PO 5 mg DAILY TO Administration Glucagon 1 mg 08/07/25 22:28 Glucagon For Inj 1 Mg Vial IM PRN PRN Hypoglycemia Protocol Glucose 15 gm 08/07/25 22:28 Glucose Oral Gel 15 Gm Of Glucse In 37.5 Gm Tube PO PRN PRN Hypoglycemia Protocol Vancomycin HCl 1,000 mg/ 250 mls @ 250 mls/hr 08/07/25 22:00 08/08/25 10:29 Sodium Chloride IVPB 08/08/25 10:59 250 mls/hr Q12H TO Administration Cefazolin Sodium 2 gm/ Sodium 50 mls @ 100 mls/hr 08/07/25 21:00 08/08/25 04:27 Chloride IVPB 08/08/25 13:29 100 mls/hr Q8H TO Administration Dextrose 1,000 mls @ 100 mls/hr 08/07/25 22:28 Dextrose 5% 1,000 Ml IVPB PRN PRN Hypoglycemia Protocol Insulin Aspart 2 - 5 units 08/08/25 08:00 08/08/25 09:42 Insulin Aspart (*Bkc) 100 Units/Ml SUB-Q Not Given TIDWM [facility] Protocol Morphine Sulfate 2 mg 08/07/25 16:40 Morphine Sulfate (*Crx) 4 Mg/Ml Inj IV PUSH Q2H PRN Pain Rated 7-10 Naloxone HCl 0.1 mg 08/07/25 16:40 Naloxone Hcl 0.4 Mg/Ml Vial IV PUSH Q2M PRN Opiate Reversal Ondansetron HCl 4 mg 08/07/25 16:40 08/07/25 21:06 Ondansetron Inj 4 Mg/2 Ml Vial IV PUSH 4 mg Q4H PRN Administration Nausea And Vomiting Oxycodone HCl 5 mg 08/07/25 17:00 08/08/25 08:50 Oxycodone Hcl (*Crx) 5 Mg Tab Ir PO 5 mg Q4H TO Administration Oxycodone HCl 5 mg 08/07/25 16:40 Oxycodone Hcl (*Crx) 5 Mg Tab Ir PO Q4H PRN Pain Rated 7-10 Pantoprazole Sodium 20 mg 08/08/25 09:00 08/08/25 08:49 Pantoprazole Sod Sesquihydrate 20 Mg Tab PO 20 mg QAM TO Administration Polyethylene Glycol 17 gm 08/08/25 09:00 08/08/25 08:50 Polyethylene Glycol 3350 17 Gm Powd.Pack PO 17 gm QAM TO Administration Senna/Docusate Sodium 2 tab 08/07/25 17:00 08/08/25 08:50 Senna/Docusate Sodium Tablet PO 2 tab BID TO Administration Radiology Results: ITS Impressions Knee X-Ray 08/07/25 17:17 IMPRESSION: 1. Satisfactory alignment of the total knee arthroplasty device at the right knee. Labs Labs: Laboratory Results - last 24 hr 08/07/25 08/07/25 08/07/25 10:12 10:36 17:12 WBC RBC Hgb Hct MCV MCH MCHC RDW Plt Count MPV Immature Gran % (Auto) Neut % (Auto) Lymph % (Auto) [place] % (Auto) Eos % (Auto) Baso % (Auto) Lymph # (Auto) [place] # (Auto) Eos # (Auto) Baso # (Auto) Abs Immat Gran (auto) Absolute Neuts (auto) Absolute Nucleated RBC Nucleated RBC % Sodium Potassium Chloride Carbon Dioxide Anion Gap BUN Creatinine Estim Creat Clear Calc Estimated GFR Glucose POC Capillary Glucose 119 H 128 H Calcium Blood Type O Positive Antibody Screen Negative 08/08/25 05:54 WBC 15.4 H RBC 4.42 Hgb 13.3 Hct 40.7 MCV 92.1 MCH 30.1 MCHC 32.7 RDW 13.3 Plt Count 218 MPV 10.4 Immature Gran % (Auto) 0.8 H Neut % (Auto) 88.1 H Lymph % (Auto) 6.9 L [place] % (Auto) 4.0 Eos % (Auto) 0.0 Baso % (Auto) 0.2 Lymph # (Auto) 1.06 [place] # (Auto) 0.6 Eos # (Auto) 0.0 Baso # (Auto) 0.0 Abs Immat Gran (auto) 0.13 H Absolute Neuts (auto) 13.6 H Absolute Nucleated RBC 0.000 Nucleated RBC % 0.0 Sodium 136 L Potassium 4.4 Chloride 105 Carbon Dioxide 21 L Anion Gap 10 BUN 17 Creatinine 1.05 H Estim Creat Clear Calc 48 Estimated GFR 52 L Glucose 130 H POC Capillary Glucose Calcium 8.5 Blood Type Antibody Screen
--- NOTE | 2025-08-08 12:02 | P.PNIM_ITS ---
Progress Note: A&P Assessment and Plan (1) Status post total right knee replacement: Code(s): Z96.651 - Presence of right artificial knee joint Status: Acute Assessment and Plan: -postop care per orthopedic physician. -DVT prophylaxis her orthopedic physician. The patient appears to be on apixaban. -pain management per orthopedic physician. -PT OT per orthopedic physician. (2) DM2 (diabetes mellitus, type 2): Code(s): E11.9 - Type 2 diabetes mellitus without complications Status: Acute Assessment and Plan: -Accu-Cheks AC and HS with sliding scale insulin. -A1c was 6.1 -the patient stated that she has been on Ozempic for many years and this is been working well for her. She would not be getting any dose while in the hospital which she can continue it while she is at home. -continue with Jardiance. -her blood sugars have been in the lower 100s. (3) Hypertension: Code(s): I10 - Essential (primary) hypertension Status: Acute Assessment and Plan: -continue with plendil. -blood pressure is currently 133/67. (4) Hyperlipidemia: Code(s): E78.5 - Hyperlipidemia, unspecified Status: Acute Assessment and Plan: -continue with atorvastatin and monitor liver enzymes. (5) Chronic kidney disease: Code(s): N18.9 - Chronic kidney disease, unspecified Status: Acute Assessment and Plan: -continue with Jardiance -last BUN and creatinine were on 07/09/2025 BUN was 15 creatinine 1.07 which GFR 51. -check daily labs. (6) Obstructive sleep apnea: Code(s): G47.33 - Obstructive sleep apnea (adult) (pediatric) Status: Acute Assessment and Plan: -the patient did bring her CPAP with her. We will auto titrate for home settings. Time Spent With Patient Time with patient: 25 - 35 minutes Subjective Date/time seen: 08/08/25 12:02 Interval history: Anat Rai is a 70 year old female history of degenerative joint disease of both knees, osteoarthritis, and diabetes. She underwent a right total knee replacement, cortisone injection left knee (please see operative note for Dr. Ha). The patient has had cortisone injections in the past. The patient has been having symptoms of both knees for several years. She has had arthroscopic right knee surgery in the past for meniscus tear. The patient was no longer receiving any benefits from further cortisone shots. She stated that her diabetes is pretty much under control and that her last A1c was 6.1. Her blood sugars have been in the lower 100s. She does check her blood sugars daily. The hospitalist was asked to consult for medical management. The date of consult is 08/07/2025. Pt is seen and examined. ortho cleared pt to go home once PT/OT is done. Encouraged IS Review of Systems Constitutional: Constitutional: Reports as per HPI and Reports no additional constitutional complaints Eyes: Eyes: Reports as per HPI and Reports no additional eye complaints ENT: Reports system reviewed and no additional complaints, except as documented and Reports Normal hearing present Cardiovascular: Cardiovascular: Reports no additional cardiovascular complaint s Respiratory: Respiratory: Reports as per HPI and Reports no additional respiratory complaints Gastrointestinal: Gastrointestinal: Reports as per HPI and Reports no additional gastrointestinal complaints Genitourinary: Genitourinary: Reports no additional female genitourinary complaints Musculoskeletal: Musculoskeletal: Reports no additional musculoskeletal complaints Integumentary/Breasts: Skin/Breast: Reports system reviewed and no additional complaints, except as docu Neurologic: Reports system reviewed and no additional complaints, except as documented and Reports Normal hearing present Psychiatric: Psychiatric: Reports no additional psychiatric complaints and Reports as per HPI Hematologic/Lymphatic: Hematologic/Lymphatic: Reports no additional hematologic/lymphatic complaints Allergic/Immunologic: Allergic/Immunologic: Reports no additional allergic/immunologic complaints Exam Const: General: cooperative, healthy appearing, comfortable, no acute distress, well developed, awake, Physically active, average body habitus and well nourished Nutritional Appearance: average body habitus and well nourished HENMT: Head: normal to inspection, No palpable skull fracture present, normocephalic, atraumatic and abrasion Ears: hearing grossly normal bilaterally and external ears normal Eyes: Pupils: Equal, round and reactive pupils present EOM: EOMs intact bilaterally Neck: Neck: normal visual inspection and full ROM Chest: Chest palpation & inspection: normal inspection of the chest Resp: Effort & Inspection: normal respiratory effort Auscultation: clear to auscultation bilaterally Cardio: Palpation: normal PMI Rate: regular rate Rhythm: regular rhythm Heart sounds: S1 normal heart sound present and S2 normal heart sound present Peripheral pulses: Peripheral pulses 2+ throughout GI: Inspection: normal to inspection Auscultation: normal bowel sounds Rectal Exam: deferred : General: Yes no CVA tenderness Back/Spine/Pelvis: Back: no CVA tenderness Cervical Spine: cervical ROM normal Thoracic/Lumbar Spine: thoracic and lumbar spine normal to inspection Pelvis: no pain with anterior-posterior compression Skin: General skin exam: normal color Lesions: no lesions Rashes: no rashes Trauma: no lacerations or abrasions Wounds: no wounds Hair: normal Nails: normal Neuro: General: oriented to person, oriented to place, oriented to time and patient oriented x3 Cranial nerves: Yes Equal, round and reactive pupils present and Yes Normal hearing present Cognition (Neuro): normal cognition Sensory Exam: normal sensation Extrem: Right lower extremity: normal to inspection Left lower extremity: normal to inspection Other: Large dressing over right knee dry and intact without any drainage. A Band-Aid intact to left knee. Psych: Appearance: grossly normal Mental Status: mental status grossly normal Speech and movement: Normal speech and movement present Affect: normal affect Attitude: cooperative Thought process: Normal thought process present Insight: Good insight present (Psych) Judgement: Good judgement present (Psych) Objective Data Vital Signs Vital Signs: Vital Signs - 24 hr 08/07/25 17:06 08/07/25 17:21 08/07/25 17:26 Temperature 97.6 F Pulse Rate 104 H 103 H Respiratory Rate 12 12 Blood Pressure 96/64 L 117/71 Pulse Oximetry 95 99 98 Oxygen Delivery Simple Face Mask Simple Face Mask Room Air Oxygen Flow Rate 8 8 08/07/25 17:35 08/07/25 17:50 08/07/25 18:05 Temperature 97.6 F Pulse Rate 101 H 102 H 95 Respiratory Rate 12 13 12 Blood Pressure 124/67 132/77 126/75 Pulse Oximetry 98 96 96 Oxygen Delivery Nasal Cannula Nasal Cannula Nasal Cannula Oxygen Flow Rate 2 2 2 08/07/25 18:59 08/07/25 21:27 08/07/25 21:32 Temperature 97.2 F L 96.8 F L Pulse Rate 93 95 Respiratory Rate 18 16 Blood Pressure 121/66 133/67 Pulse Oximetry 90 95 Oxygen Delivery Room Air Oxygen Flow Rate 08/07/25 22:45 08/08/25 02:29 08/08/25 02:45 Temperature 96.8 F L Pulse Rate 99 95 95 Respiratory Rate 14 Blood Pressure 134/72 Pulse Oximetry 98 95 98 Oxygen Delivery CPAP CPAP Oxygen Flow Rate 08/08/25 05:15 08/08/25 08:00 08/08/25 08:49 Temperature 97.3 F L Pulse Rate 103 H 103 H Respiratory Rate 14 14 Blood Pressure 134/72 Pulse Oximetry 95 94 Oxygen Delivery Room Air Room Air Oxygen Flow Rate 08/08/25 09:23 08/08/25 09:50 08/08/25 10:29 Temperature 97.2 F L Pulse Rate 92 Respiratory Rate 14 Blood Pressure 117/64 Pulse Oximetry 94 97 Oxygen Delivery Room Air Room Air Oxygen Flow Rate Intake/Output Intake/Output: Intake & Output 08/05/25 08/06/25 08/07/25 08/08/25 23:59 23:59 23:59 23:59 Intake Total 300 568 Balance 300 568 Meds/Results Medications: Active Medications Generic Name Dose Route Start Last Admin Trade Name Freq PRN Reason Stop Dose Admin Acetaminophen 500 mg 08/07/25 18:00 08/08/25 10:14 Acetaminophen 500 Mg Tablet PO 500 mg Q4H TO Administration Apixaban 2.5 mg 08/08/25 09:00 08/08/25 08:49 Apixaban 2.5 Mg Tablet PO 2.5 mg Q12HR TO Administration Aspirin 81 mg 08/08/25 08:00 08/08/25 08:47 Aspirin 81 Mg Chewable Tablet PO 81 mg DAILY@0800 TO Administration Atorvastatin Calcium 40 mg 08/08/25 09:00 08/08/25 08:49 Atorvastatin 40 Mg Tablet PO 40 mg DAILY TO Administration Calcium Carbonate 500 mg 08/08/25 09:00 08/08/25 08:49 Calcium Carbonate (Oscal) 500 Mg Tablet PO 500 mg QAM TO Administration Celecoxib 100 mg 08/08/25 08:00 08/08/25 08:48 Celecoxib 100 Mg Capsule PO 100 mg DAILY@0800 TO Administration Dextrose 12.5 gm 08/07/25 22:28 Dextrose 50% 25 Gm/50 Ml Syringe IV PUSH PRN PRN Hypoglycemia Protocol Doxycycline Hyclate 100 mg 08/08/25 09:00 08/08/25 08:59 Doxycycline Hyclate 100 Mg Tablet PO 08/20/25 08:59 100 mg Q12HR TO Administration Empagliflozin 25 mg 08/08/25 09:00 08/08/25 08:49 Empagliflozin 25 Mg Tablet PO 25 mg QAM TO Administration Felodipine 5 mg 08/08/25 09:00 08/08/25 08:49 Felodipine Er 5 Mg Tab PO 5 mg DAILY TO Administration Glucagon 1 mg 08/07/25 22:28 Glucagon For Inj 1 Mg Vial IM PRN PRN Hypoglycemia Protocol Glucose 15 gm 08/07/25 22:28 Glucose Oral Gel 15 Gm Of Glucse In 37.5 Gm Tube PO PRN PRN Hypoglycemia Protocol Cefazolin Sodium 2 gm/ Sodium 50 mls @ 100 mls/hr 08/07/25 21:00 08/08/25 04:27 Chloride IVPB 08/08/25 13:29 100 mls/hr Q8H TO Administration Dextrose 1,000 mls @ 100 mls/hr 08/07/25 22:28 Dextrose 5% 1,000 Ml IVPB PRN PRN Hypoglycemia Protocol Insulin Aspart 2 - 5 units 08/08/25 08:00 08/08/25 09:42 Insulin Aspart (*Bkc) 100 Units/Ml SUB-Q Not Given TIDWM [facility] Protocol Morphine Sulfate 2 mg 08/07/25 16:40 Morphine Sulfate (*Crx) 4 Mg/Ml Inj IV PUSH Q2H PRN Pain Rated 7-10 Naloxone HCl 0.1 mg 08/07/25 16:40 Naloxone Hcl 0.4 Mg/Ml Vial IV PUSH Q2M PRN Opiate Reversal Ondansetron HCl 4 mg 08/07/25 16:40 08/07/25 21:06 Ondansetron Inj 4 Mg/2 Ml Vial IV PUSH 4 mg Q4H PRN Administration Nausea And Vomiting Oxycodone HCl 5 mg 08/07/25 17:00 08/08/25 08:50 Oxycodone Hcl (*Crx) 5 Mg Tab Ir PO 5 mg Q4H TO Administration Oxycodone HCl 5 mg 08/07/25 16:40 Oxycodone Hcl (*Crx) 5 Mg Tab Ir PO Q4H PRN Pain Rated 7-10 Pantoprazole Sodium 20 mg 08/08/25 09:00 08/08/25 08:49 Pantoprazole Sod Sesquihydrate 20 Mg Tab PO 20 mg QAM TO Administration Polyethylene Glycol 17 gm 08/08/25 09:00 08/08/25 08:50 Polyethylene Glycol 3350 17 Gm Powd.Pack PO 17 gm QAM TO Administration Senna/Docusate Sodium 2 tab 08/07/25 17:00 08/08/25 08:50 Senna/Docusate Sodium Tablet PO 2 tab BID TO Administration Radiology Results: ITS Impressions Knee X-Ray 08/07/25 17:17 IMPRESSION: 1. Satisfactory alignment of the total knee arthroplasty device at the right knee. Labs Labs: Laboratory Results - last 24 hr 08/07/25 08/08/25 08/08/25 17:12 05:54 11:36 WBC 15.4 H RBC 4.42 Hgb 13.3 Hct 40.7 MCV 92.1 MCH 30.1 MCHC 32.7 RDW 13.3 Plt Count 218 MPV 10.4 Immature Gran % (Auto) 0.8 H Neut % (Auto) 88.1 H Lymph % (Auto) 6.9 L [place] % (Auto) 4.0 Eos % (Auto) 0.0 Baso % (Auto) 0.2 Lymph # (Auto) 1.06 [place] # (Auto) 0.6 Eos # (Auto) 0.0 Baso # (Auto) 0.0 Abs Immat Gran (auto) 0.13 H Absolute Neuts (auto) 13.6 H Absolute Nucleated RBC 0.000 Nucleated RBC % 0.0 Sodium 136 L Potassium 4.4 Chloride 105 Carbon Dioxide 21 L Anion Gap 10 BUN 17 Creatinine 1.05 H Estim Creat Clear Calc 48 Estimated GFR 52 L Glucose 130 H POC Capillary Glucose 128 H 150 H Calcium 8.5 Quality VTE Prophylaxis VTE prophylaxis: pharmacologic ordered
[2025-08-08 12:41] LABS: Hematocrit 36.6 % (37.0-47.0); Hemoglobin 12.0 g/dL (12.0-15.0); Mean Corpuscular HGB Conc 32.8 g/dl (32-36); Mean Corpuscular Hemoglobin 30.0 pg (26-34); Mean Corpuscular Volume 91.5 fl (80-100); Platelet Count Result 191 k/mm3 (150-375); Red Blood Count 4.00 M/mm3 (4.2-5.4); White Blood Count 14.7 K/mm3 (4.5-10.0)
== END 2025-08-08 14:48 | disposition home or self-care (01) ==
LOC: ANHSURGERY 09:27 → ANH3MEDSUR 18:17
PROVIDERS: Nurse Practitioner; PCP Internal Medicine; Visit Provider Orthopaedic Surgery
PROC: (CPT 27447; principal; 2025-08-07 11:30)
DX: M17.0 Bilateral primary osteoarthritis of knee (principal); M25.761 Osteophyte, right knee; E78.5 Hyperlipidemia, unspecified; E11.22 Type 2 diabetes mellitus with diabetic chronic kidney disease; I12.9 Hypertensive chronic kidney disease with stage 1 through stage 4 chronic kidney disease, or unspecified chronic kidney disease; N18.9 Chronic kidney disease, unspecified; G47.33 Obstructive sleep apnea (adult) (pediatric); E66.9 Obesity, unspecified; Z68.36 Body mass index [BMI] 36.0-36.9, adult; Z79.82 Long term (current) use of aspirin; Z79.84 Long term (current) use of oral hypoglycemic drugs; Z79.85 Long-term (current) use of injectable non-insulin antidiabetic drugs; Z79.01 Long term (current) use of anticoagulants; Z79.1 Long term (current) use of non-steroidal anti-inflammatories (NSAID); Z99.89 Dependence on other enabling machines and devices; Z98.890 Other specified postprocedural states; Z90.49 Acquired absence of other specified parts of digestive tract; Z96.651 Presence of right artificial knee joint; Z82.49 Family history of ischemic heart disease and other diseases of the circulatory system
CPT/HCPCS: 27447; 20610; 36415; 73560; 80048; 82948; 85025; 85027; 86850; 86900; 86901; 97110; 97161; 97165; 97530; J0690; A9270; C1713; C1776; J0166; J1010; J1100; J1171; J1885; J2003; J2250; J2270; J2405; J2704; J2795; J3010; J3290; J3373; J7030; J7050; J7120